=== PATIENT | male | born 1955 | race Caucasian/White ===

== ENCOUNTER 2023-03-14 05:45 | Observation (INO) ==
--- NOTE | 2023-03-04 12:52 | Anesthesiology Consultation ---
Date of Service March 04, 2023 Assessment & Plan (1) Encounter for pre-operative examination: - Infectious disease screening: Per assessment on 03/04/23: No known infectious disease contacts or current infectious disease symptoms. No noted Covid positive test result in past 90 days. - Cardiology visit (10/31/22 [facility]): "Aortic regurgitation.. This is moderate. The echo report states that the left ventricular size is normal but the measurement of 6.4 cm would suggest that it is in fact mildly dilated. This is not unexpected given moderate aortic insufficiency combined with mild mitral regurgitation. Patient does not have any evidence of fluid overload and his EF is low normal based on the report. Unfortunately I do not have the images to review myself. He had been on Lasix but this has been discontinued. In the absence of edema I would not resume Lasix. I recommend that we repeat echocardiogram in 1 year. He has no issues with blood pressure and therefore antihypertensives are not currently indicated.. Venous reflux.. Lower extremities are consistent with chronic venous insufficiency. Fortunately not having significant edema at this time. He will be followed by vascular surgery. I do agree use of compression stockings may be beneficial." > 6 month f/u recommended. - Leg rash: Patient has appt with dermatology today- Awaiting dermatology office visit note ([facility] dermatology, appt 03/04). Patient otherwise acceptable risk for surgery. Chart Review Chart Review: Acceptable Risk for Surgery and Patient NOT seen in Pre Admission Testing History Surgery Operation Date: 03/14/23 07:30 Proposed Procedures p Laparoscopic Robotic Assisted Radical Retropubic Prostatectomy, Possible Open, Possible Pelvic Lymph Node Dissection - David Rojas MD Height/Weight Height: 6 ft Weight: 106.594 kg Allergies Allergy/AdvReac Type Severity Reaction Status Date / Time No Known Drug Allergies Allergy Verified 03/04/23 11:42 Medications Home Medications Medication Instructions Recorded Confirmed Last Taken multivitamin 1 tab PO DAILY #90 tabs 11/17/18 03/04/23 Unknown ferrous sulfate 325 mg (65 mg 325 mg PO Q OTHER DAY 10/31/22 03/04/23 Unknown iron) tablet fluconazole 100 mg tablet 100 mg PO DAILY #5 tabs 11/23/22 03/04/23 Unknown (Diflucan) nystatin-triamcinolone 100,000 1 applic topical BID #30 grams 11/23/22 03/04/23 Unknown unit/g-0.1 % topical cream furosemide 20 mg tablet 20 mg PO QAM 12/04/22 03/04/23 Unknown Past Medical History Medical History Bilateral leg edema Hx, none at present per patient Prostate cancer Aortic regurgitation Echo 07/2022: Moderate AR Follows with [facility] cardiology Pt unaware Skin rash Leg, seeing [facility] derm 03/04/23 Past Family History Family History Father Diabetes Mother Cancer Brother No problems noted. Son No problems noted. Denies family history of Ovarian cancer Prostate cancer Myocardial infarction Breast cancer Colorectal cancer Past Surgical History Surgical History Hx of vasectomy History of colonoscopy History of tooth extraction S/P appendectomy History of prostate biopsy History of arthroscopy of left knee H/O inguinal hernia repair Social History Smoking Status: Never smoker Do You Dip or Chew Tobacco: No Hx Alcohol Use: No Hx Substance Use: No substance use type: does not use Testing Laboratory Results 02/20/23 WBC 9.43 H/H 14.2/43.7 PLATELETS 233 SODIUM 141 POTASSIUM 4.2 CHLORIDE 104 CO2 28 BUN 21 CREATININE 1.0 GLUCOSE 84 URINE CULTURE no growth Electrocardiogram Date: 02/20/23 SR with PACs at 67bpm. High QRS voltage may be normal variant or due to LVE. Chest X-Ray Date: 02/20/23 Findings: + NAD Echocardiogram Date: 08/09/22 Indication: Localized edema LVEF 50% (low normal). Small sized lateral wall motion abnormality with HK of the segments. Mild KRISTIN. Mild MR. Moderate AR. Moderately enlarged aortic root. Proximal ascending aorta mildly enlarged. Grade I DD. Other Testing PET Skull-mid thigh Date: 12/27/22 IMPRESSION: 1. Redemonstration of the 3 cm lesion within the left side of the prostate gland demonstrating moderate radiotracer uptake consistent with the patient's known malignancy. 2. Mild FDG uptake associated with a few small left external iliac and bilateral inguinal lymph nodes. These are indeterminate and would be an atypical location for metastatic disease. However, attention at follow-up recommended to exclude metastatic disease.
[2023-03-14] MEDS ORDERED: ceFAZolin 2000MG 2,000 MG/15 ML SYR IV SCH (06:00)
[2023-03-14] MEDS ORDERED: HEPARIN SOD 5,000 UNIT/0.5 ML VIAL SQ SCH (06:00)
[2023-03-14] MEDS ORDERED: LR 15ML/HR IV SCH (06:00)
[2023-03-14] MEDS ORDERED: LACTATED RINGER'S 1,000 ML IV SCH (06:00)
[2023-03-14] MEDS ORDERED: LIDOCAINE 2% 2 ML VIAL/AMP(20MG/ML) INFIL ONE (06:47)
[2023-03-14] MEDS ORDERED: PROPOFOL IV EMULSION 10 MG/ML 20 ML VIAL IV ONE (06:47)
[2023-03-14] MEDS ORDERED: DEXAMETHASONE SOD INJ 4 MG/ML VIAL ONE (06:47)
[2023-03-14] MEDS ORDERED: ROCURONIUM BROMIDE 10 MG/ML 5 ML VIAL IV ONE ×3 (06:47→11:27)
[2023-03-14] MEDS ORDERED: ONDANSETRON INJ 2 MG/ML 2 ML VIAL ONE (06:47)
[2023-03-14] MEDS ORDERED: MIDAZOLAM HCL 1 MG/ML 2ML VIAL ONE (06:48)
[2023-03-14] MEDS ORDERED: fentaNYL citrate PF 100 MCG/2 ML VIAL ONE ×3 (06:48→11:57)
[2023-03-14] MEDS ORDERED: SUGAMMADEX SODIUM 200 MG/2 ML VIAL IV ONE (06:50)
[2023-03-14] MEDS ORDERED: KETAMINE HCL 10MG/ML SYR ONE (07:02)
[2023-03-14] MEDS ORDERED: BUPIVACAINE 0.5 % 5 MG/1 ML MPF 30ML VIAL ONE (07:14)
--- NOTE | 2023-03-14 07:15 | History & Physical Report ---
Date of Service March 14, 2023 Assessment & Plan (1) Prostate cancer: Plan: We reviewed the plan for robot-assisted radical prostatectomy and pelvic lymph node dissection. We reviewed risks of bleeding, infection, injury to nearby structures, changes in urinary continence, need for additional procedures, changes in erectile function. He expressed understanding and willingness to proceed with surgery. History of Present Illness Primary Care Provider: Shane Zhu DO This is a 67-year-old male followed by urology for prostate cancer. He presents to the OR today for robot-assisted radical prostatectomy. He denies any changes in his health. Allergies Allergy/AdvReac Type Severity Reaction Status Date / Time No Known Drug Allergies Allergy Verified 03/14/23 06:04 Home Medications Medication Instructions Recorded Confirmed Type multivitamin 1 tab PO DAILY #90 tabs 11/17/18 03/14/23 Rx ferrous sulfate 325 mg (65 mg 325 mg PO Q OTHER DAY 10/31/22 03/14/23 History iron) tablet fluconazole 100 mg tablet 100 mg PO DAILY #5 tabs 11/23/22 03/14/23 Rx (Diflucan) nystatin-triamcinolone 100,000 1 applic topical BID #30 grams 11/23/22 03/14/23 Rx unit/g-0.1 % topical cream furosemide 20 mg tablet 20 mg PO QAM 12/04/22 03/14/23 History Past Med/Surg History Medical History Bilateral leg edema Hx, none at present per patient Prostate cancer Aortic regurgitation Echo 07/2022: Moderate AR [facility] Pt unaware Skin rash Leg, seeing [facility] derm 03/04/23 Surgical History Hx of vasectomy History of colonoscopy History of tooth extraction S/P appendectomy History of prostate biopsy History of arthroscopy of left knee H/O inguinal hernia repair Family History Father Diabetes Mother Cancer Brother No problems noted. Son No problems noted. 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 Physical Exam Constitutional: well developed and well nourished; no acute distress Eyes: + anicteric sclerae; pupils not irregula r Respiratory: normal respiratory effort; no respiratory distress, does not use accessory muscles and no cough Cardiovascular: well perfused Gastrointestinal (Abdomen): Inspection/Auscultation: abdomen normal to inspection; abdomen not distended Musculoskeletal: Extremities: extremities normal to inspection Skin: normal turgor; no rashes and no lesions Neurologic: moves all extremities and awake Psychiatric: Orientation: alert and oriented x 3 Results & Data Vital Signs (Past 12 Hours) Vital Signs Temp Pulse Resp BP Pulse Ox O2 Del Method 03/14/23 06:07 36.6 C 68 18 164/84 H 95 Room Air
[2023-03-14] MEDS ORDERED: ONDANSETRON INJ 2 MG/ML 2 ML VIAL IV PRN ×2 (10:11→13:49)
[2023-03-14] MEDS ORDERED: FLUMAZENIL 0.1 MG/1 ML 10 ML VIAL IV PRN (10:11)
[2023-03-14] MEDS ORDERED: ATROPINE SULFATE 0.1 MG/ML 10ML SYR IV PRN (10:11)
[2023-03-14] MEDS ORDERED: ePHEDrine sulfate 50 MG/ML AMP IV PRN (10:11)
[2023-03-14] MEDS ORDERED: HYDROmorphone INJ 1 MG/ML SYRINGE IV PRN (10:11)
[2023-03-14] MEDS ORDERED: PROMETHAZINE HCL 12.5 MG in SODIUM CHLORIDE 0.9% 50 ML IV PRN (10:11)
[2023-03-14] MEDS ORDERED: NALOXONE HCL 0.4 MG/1 ML VIAL/CARP IV PRN (10:11)
[2023-03-14] MEDS ORDERED: LABETALOL HCL IV 5 MG/ML 20ML IV PRN (10:11)
[2023-03-14] MEDS ORDERED: PHENYLEPHRINE 100MCG/ML 10ML SYR IV ONE (11:03)
[2023-03-14] MEDS ORDERED: ePHEDrine sulfate 50 MG/5 ML SYR ONE (11:03)
--- NOTE | 2023-03-14 12:27 | Operative Report ---
[facility] Post Operative Report Pre & Post Diagnosis Operation Date: 03/14/23 07:30 Pre-Op Diagnosis: Prostate Cancer Post-Op Diagnosis: Prostate Cancer I identified the patient and participated in the time-out.: Yes Procedure Operation Date: 03/14/23 07:30 Actual Procedures p Robotic Assisted Laparoscopic Radical Retropubic Prostatectomy, Pelvic Lymph Node Dissection(Not Applicable) - David Rojas MD Surgeon David Rojas MD Special Education Resource Room Teacher TREY Lima Estimated Blood Loss 200 Findings Consistent with Post-Op Diagnosis Specimens 1) periprostatic fat 2) right pelvic lymph nodes 3) left pelvic lymph nodes 4) prostate, vas deferens, seminal vesicles Drains Bansal catheter per urethra, 10 cc in balloon Anesthesia Type General Complications none Disposition Accompanied Patient To Recovery: Yes Disposition: Recovery Room Indications This is a 67-year-old male followed by urology for prostate cancer. He is being brought to the operating room for robot-assisted radical prostatectomy and pelvic lymph node dissection. Description of Procedure The patient was identified in the preoperative holding area and informed consent was confirmed. He was then brought to the operating room where general anesthesia was initiated. He was placed supine on the operating room table with all pressure points appropriately padded. His abdomen and genitalia were prepped and draped in the usual sterile fashion and a timeout was performed. Bansal catheter was placed per urethra. A 2 cm incision was made above the umbilicus and then a Veress needle was used to obtain access to the abdomen. Proper position was confirmed with the drop test and low initial insufflation pressure. The abdomen was insufflated with CO2 to a pressure of 12 mmHg. An 8 mm robotic port was placed in the incision and the robotic camera was inserted. The abdominal cavity was surveyed, demonstrating no injury to intra-abdominal contents. He had some adhesions in the left lower quadrant. There appeared to be some fat-containing hernias in the pelvis. The remaining robotic ports were placed under direct visualization, with 2 ro botic ports on the left side and 1 robotic port on the right. A 12 mm medical billing assistant port was placed on the right side as well, and a 5 mm medical billing assistant port was placed in the right upper quadrant. The robot was then docked. Sharp lysis of adhesions were performed in the left lower quadrant to gain some mobility of the sigmoid and rectum. Using electrocautery, the bladder was then dropped from the anterior wall of the abdomen, exposing the space of Retzius. The fat-containing hernias were reduced as much as possible were divided if needed. This dissection was carried down to expose the pelvic brim and subsequently the anterior surface of the prostate and the endopelvic fascia. The fat overlying the anterior of the prostate was removed and sent for pathologic analysis, labeled as 'periprostatic fat'. The endopelvic fascia was then divided on each side to expose the lateral aspects of the prostate and the lateral aspects of the pedicles. There was some mild inflammation in the tissues on the left side which made dissection slightly more challenging. A single 3-0 V-Loc suture was used to ligate the dorsal venous complex to prevent backbleeding in subsequent steps. The fourth arm of the robot was then used to put some gentle traction on the bladder, and the bladder neck was identified. Using electrocautery, the anterior bladder neck was dissected to expose the Bansal catheter, whose tip was removed from the bladder and held anteriorly. There was a somewhat prominent left prostatic lobe extending toward the bladder. The posterior bladder neck dissection was then completed. At this point bilateral vas deferens were exposed and isolated. The vas deferens were cauterized and then divided. Bilateral seminal vesicles were dissected out as well. Denonvilliers fascia was then divided and the posterior prostate dissection was carried up as far as possible toward the urethra. The pedicles were then divided using combination of clips and sharp dissection, trying to use minimal electrocautery. On the right side, a nerve sparing approach was used. On the left side, a partial nerve sparing approach was used. Attention was turned anteriorly and the dorsal venous complex was divided using sharp dissection and electrocautery. There was some bleeding from the dorsal venous complex so the 3 oh V-Loc suture was used to ligate these areas. The urethra was isolated and then divided sharply. At this point, the prostate was free and was placed in a specimen bag. Bilateral pelvic lymph node dissection was then performed, and the padma tissue was sent for pathologic analysis. The pelvis was inspected and meticulous hemostasis was ensured. Double-armed V- Loc suture was then used to re-anastomose the bladder neck with the urethra. Once this was complete, the anastomosis was tested by instilling 120 mL of normal saline into the bladder. Initially there was some leaking from the left side of the bladder neck although additional sutures were placed with a running V-Loc which eventually resulted in a watertight anastomosis. Satisfied that the anastomosis was watertight, the catheter balloon was inflated with 10 mL of normal saline. Surgicel was then applied to the lateral aspects of the pelvis for hemostasis. The robot was then undocked. The supraumbilical incision was extended and the prostate was extracted. 0 Vicryl suture was then used to close the fascia at this incision. All skin incisions were closed with 4-0 Monocryl suture and then a layer of Dermabond was applied. The patient was then awakened from anesthesia and was brought to the PACU in stable condition. TREY Lima acted as the bedside medical billing assistant for the duration of the case. She assisted with gaining access, providing retraction and suction. Passing in sutures and applying clips as needed. She also helped with specimen extraction and closing. I attest to the content of the Intraoperative Record and any orders documented therein. Any exceptions are noted below.
[2023-03-14] MEDS: fentaNYL citrate PF 100 MCG/2 ML VIAL IV PRN ×2 (12:33→12:38)
--- NOTE | 2023-03-14 13:32 | Anesthesiology Progress Note ---
Date of Service March 14, 2023 Anesthesia Post Procedure Vital Signs Vital Signs: Temp Pulse Pulse Resp BP Pulse Ox O2 Del Method 03/14/23 13:05 79 15 126/69 92 Oxymask 03/14/23 12:55 80 16 123/71 91 Oxymask 03/14/23 12:45 86 15 126/81 90 Oxymask 03/14/23 12:35 104 H 19 135/82 91 Oxymask 03/14/23 12:25 76 17 117/67 94 Oxymask 03/14/23 12:17 36.3 C L 76 15 112/66 94 Oxymask 03/14/23 06:07 36.6 C 68 18 164/84 H 95 Room Air O2 Flow Rate 03/14/23 13:05 6 03/14/23 12:55 10 03/14/23 12:45 10 03/14/23 12:35 10 03/14/23 12:25 10 03/14/23 12:17 10 03/14/23 06:07 Transfer of Care Handoff Completed per policy Notes Mental Status: alert / awake / arousable Patient Amnestic to Procedure: Yes Nausea / Vomiting: adequately controlled Pain: adequately controlled Airway Patency, RR, SpO2: stable & adequate BP & HR: stable & adequate Hydration State: stable & adequate Anesthetic Complications: no major complications apparent
[2023-03-14] MEDS ORDERED: IBUPROFEN 200 MG TAB PO PRN (13:49)
[2023-03-14] MEDS ORDERED: oxyCODONE HCL IR 5 MG TAB (IMMEDIATE RELEASE) PO PRN ×2 (13:49)
[2023-03-14] MEDS ORDERED: MoRPHine SULFATE 2 MG/ML CARP IV PRN (13:49)
[2023-03-14] MEDS ORDERED: MoRPHine SULFATE 4 MG/ML 1 ML CARP\\VIAL IV PRN (13:49)
[2023-03-14] MEDS: LACTATED RINGER'S 1,000 ML IV SCH (15:24)
[2023-03-14] MEDS: ceFAZolin 2000MG 2,000 MG/15 ML SYR IV SCH ×2 (17:14→23:03)
[2023-03-14] MEDS: ACETAMINOPHEN 325 MG TAB PO SCH (18:32)
[2023-03-14] MEDS: HEPARIN SOD 5,000 UNIT/0.5 ML VIAL SQ SCH (21:28)
[2023-03-14] MEDS: DOCUSATE SODIUM 100 MG CAP PO SCH (21:28)
--- OUTSIDE RECORDS SUMMARY | 2023-03-15 00:37 | External Medical Summary | Summary of Care ---
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 Dr doughertys up in the winter some. Comes and goes * Evaluate & Treat - Unlimited Visits (Within 10 days (routine)) - Pending Review Specialty Diagnoses / Procedures Referred By Dinh cain Referred To Contact Dermatology Diagnoses Rash and other nonspecific skin eruption Shane Zhu DO [address] [place] [address] Referral ID Status Reason Start Date Expiration Date Visits Requested Visits Authorized [id number] Pending Review Specialty Services Required 11/26/[phone] Encounter Details Date Type Department Care Team (Late st Contact Info) Description 03/04/2023 3:10 PM EST Office Visit Dermatology, Julianna Maldonado [address] [place] [address] [place] [address] Moon Aguayo PA-C [address] [place] [address] [place] [address] Rash and nonspecific skin eruption* Allergies Active Allergy Reactions Criticality Noted Date Comments Qhkwklmfv-Roszzlar-Xd 01/24/2009 Dymatapp- burning palms documented as of this encounter (statuses as of 03/08/2023) Medications Medication Sig Dispensed Refills Start Date End Date Status MULTIVITAMINS PO CAPS one cap daily 0 0 01/24/2009 Active TRIAMCINOLONE ACETONIDE 0.1 % EX CREAIndications:De rmatitis Apply to affected area twice a day 80 g 5 02/05/2013 Active Acetaminophen 325 MG Oral Tablet (Tylenol) Take 3 Tablets by mouth every 6 hours. 30 Tablet 0 10/03/2022 Active Betamethasone Dipropionate Aug 0.05 % External Cream (Diprolene AF)Indications:Preston h and nonspecific skin eruption Apply twice daily to extremities up to 2 weeks, then taper to weekends only Fri-Sun as needed 50 g 2 03/04/2023 Active METAMUCIL 0.52 GM PO CAPS 2 in AM 60 Cap 0 12/26/2009 3 Discontinue d(Medicatio n List Clean Up) VIAGRA 50 MG PO TABSIndications:Im potence of organic origin One pill by mouth 1-4 hours before intercourse, no more than 1 dose in 24 hours. 10 Tab 5 11/13/2010 3 Discontinue d(Medicatio n List Clean Up) furosemide (LASIX) 20 MG Tablet Take 20 mg by mouth daily. 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 Overview: Viagra prn Dermatitis 01/27/2010 Benign neoplasm of colon 03/09/2009 Overview: Colonoscopy 2008: adenomatous/acute rectal cryptitis/repeat colonoscopy 2011 documented as of this encounter (statuses as of 03/08/2023) Immunizations Name Administration Dates Next Due TDAP (age 11 and older)(Adacel) 06/22/2011 documented as of this encounter Social History Tobacco Use Types Packs/Day Years Used Date Smoking Tobacco: Never Smokeless Tobacco: Never Alcohol Use Standard Drinks/Week Comments No 0 (1 standard drink = 0.6 oz pur e alcohol) PHQ-2 Answer Date Recorded PHQ-2 Score 0 02/19/2018 Sex and Gender Information Value Date Recorded Sex Assigned at Not on file Gender Identity Not on file Sexual Orientation Not on file Job Start Date Occupation Industry Not on file Not on file Not on file documented as of this encounter Functional Status Functional Status Response Date of Assess ment Are you deaf or do you have serious difficulty h earing? No 10/02/2022 Are you blind or do you have serious difficulty seeing, even when wearing glasses? No 10/02/2022 Do you have serious difficul ty walking or climbing stairs? (5 years old or older) No 10/02/2022 Do you have difficulty dress ing or bathing? (5 years old or older) No 10/02/2022 Because of a physical, menta l, or emotional condition, do you have difficulty doing errands alone such as visiting a doctor s office or shopping? (15 years old or older) No 10/03/19 Cognitive Status Response Date of Assessm ent Because of a physical, menta l, or emotional condition, do you have serious difficulty concentrating, remembering, or making decisions? 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 Dries up in the winter some. Comes and goes HPI: Josue Page is a 67 year old male seen at the request of Shane Zhu DO for evaluation and treatment of rash. Rash onset a few years ago. Worse in summer months and seems to "dry out in winter". PCP has prescribed triamcinolone cream which helps decrease inflammation, but rash never resolves. No other areas of involvement. He denies eczema or allergy. No known exposures or contact to area(s). He denies eczema. DERMATOLOGIC HISTORY: Reviewed previous office notes and relevant surgical pathology: H/o skin disorders: no H/o skin cancer: no REVIEW OF SYSTEMS: See HPI- all other findings negative Constitutional: (-) fever, chills, sweats, weight loss Skin: (-) no rash or new or changing moles or skin lesions Past Medical History: Diagnosis Date Benign neoplasm of colon 03/09/09 adenomatous/acute rectal cryptitis/repeat colonoscopy in 3-5 yrs Patient Active Problem List Diagnosis Code Benign neoplasm of colon D12.6 Dermatitis L30.9 Impotence of organic origin N52.9 Elevated prostate specific antigen (PSA) R97.20 SOCIAL HISTORY: Social History Tobacco Use Smoking status: Never Smokeless tobacco: Never Substance Use Topics Alcohol use: No Vaping/E-Cigarette Use Vaping/E-Cigarette Substances Vaping/E-Cigarette Devices MEDICATIONS: Current Outpatient Medications Medication Sig Dispense Refill MULTIVITAMINS PO CAPS one cap daily 0 0 METAMUCIL 0.52 GM PO CAPS 2 in AM (Patient not taking: Reported on 10/01/2022) 60 Cap 0 TRIAMCINOLONE ACETONIDE 0.1 % EX CREA Apply to affected area twice a day 80 g 5 furosemide (LASIX) 20 MG Tablet Take 20 mg by mouth daily. (Patient not taking: Reported on 10/01/2022) Acetaminophen 325 MG Oral Tablet (Tylenol) Take 3 Tablets by mouth every 6 hours. 30 Tablet 0 No current facility-administered medications for this visit. ALLERGIES: Cold & cough [surpoqsrz-jepxmoqz-gz] OBJECTIVE: GEN: Healthy, alert, no distress, appears oriented, pleasant, and cooperative. PSYCH: Appropriate mood and affect, alert SKIN: Detailed exam to lower extremities was completed and are within normal limits with the following exceptions: 1. Bilateral upper thighs with scattered pink scaly papules and plaques. ASSESSMENT/PLAN: Rash-nummular dermatitis vs contact dermatitis-allergic/irritant, low suspicion for tinea with negative TRISTIAN. - DERM IMAGE (SITE) - POTASSIUM HYDROXIDE SMEAR, POINT OF CARE (ENTER/EDIT) - Betamethasone Dipropionate Aug 0.05 % External Cream (Diprolene AF); Apply twice daily to extremities up to 2 weeks, then taper to weekends only Fri-Sun as needed -TRISTIAN negative. -Presumed diagnoses, expected natural histories, and management options discussed with the patient at length. Questions were addressed and anticipatory guidance provided. They were instructed to contact me if additional questions, concerns, or problems develop in the interim. - The patient was recommended to use a moisturizing cream at least twice daily such as Cetaphil, CeraVe, Aveeno, Eucerin, Neutrogena, or Aquaphor - When showering/bathing, the pt was advised to use luke-warm water and mild soaps followed by gently patting dry and applying moisturizers immediately after - Counseled on identifying and avoiding triggers when possible - May start using Free and Clear Detergent for laundry and avoid scented dryer sheets - Cortisones, which reduce inflammation, are vitally important. Low potency cortisones can be used safely for long periods of time, and stronger ones for troubled areas as needed. - Trial of betamethasone 0.05% cream twice daily for 2 weeks, then taper to weekends only as needed. - Instructed to return to clinic for re-evaluation if no improvement with above regime. Patient alone today. Follow-up: per plan above, otherwise as needed. Photos taken, patient consented to photos. Applicable photos (if any) and chart reviewed by Dr. Marco Ordoñez. The patient was encouraged to contact me with any further questions or concerns. Moon Aguayo PA-C 03/04/2023 * Marco Ordoñez MD - 03/04/2023 3:10 PM EST I have seen and examined the patient via teledermatology review of chart note and photos with Moon Aguayo PA-C. I have reviewed and agree with the assessment and plan. 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 Dries up in the winter some. Comes and goes documented in this encounter Plan of Treatment Scheduled Procedures Name Priority Associated Diagnoses Date/Ti me COLONOSCOPY FLEXIBLE PROXIMA L DIAGNOSTIC Recall History of colonic polyps Health Maintenance Due Date Last Done Comments COVID-19 Vaccine (#1) 02/26/1956 Zoster Vaccines (1 of 2) 2006 Depression Screening 01/07/2019 01/07/2018 DTaP,Tdap,and Td Vaccines (2 - Td or Tdap) 06/21/2021 06/22/2011 Pneumococcal Vaccine: 65+ Years (1 - PCV) 2021 Influenza Vaccine (FLU shot) (#1) 2022 Lipid Panel 01/07/2023 01/07/2018, 12/14, 12/26/2015, Additional history exists COLONOSCOPY-EVERY 5 YRS AGES 18-100 04/10/2024 04/10/2019, 04/10/2019, 02/15/2014, Additional history exists Diabetes Screening 02/20/2026 02/20/2023, 0 10/02/2022, 10/01/2022, Additional history exists GARDASIL-HPV IMMUNIZATION SERIES Aged Out No longer eligible based on patient's age to complete this topic Hepatitis B Aged Out No longer eligi ble based on patient's age to complete this topic MENINGOCOCCAL (MENACTRA/MENVEO) Aged Out No longer eligible based on patient's age to complete this topic documented as of this encounter Medical Devices Not on filedocumented as of this encounter Procedures Procedure Name Priority Date/Time Associated Diagnosis Comments POTASSIUM HYDROXIDE SMEAR, POINT OF CARE (ENTER/EDIT) Routine 03/04/2023 Rash and nonspecific skin eruption DERM IMAGE (SITE) Routine 03/04/2023 Rash and nonspecific skin eruption documented in this encounter Results * DERM IMAGE (SITE) (03/04/2023) 03/04/2023 Moon Aguayo PA-C DIGITAL PHOTOGR APHY * POTASSIUM HYDROXIDE SMEAR, POINT OF CARE (ENTER/EDIT) (03/04/2023) Yeast and/or Hyphae Negative Negative Scabies Mites and/or Eggs Negative Negative Comments 03/04/2023 Moon Aguayo PA-C LAB POINT OF CA RE TEST ENTER/EDIT ORDERABLES documented in this encounter Visit Diagnoses Diagnosis Rash and nonspecific skin eruption- Primary Rash and other nonspecific skin eruption documented in this encounter Advance Directives Latest Code Status on File Code Status Date Activated Date Inactivated Comments Full Code 10/02/2022 1:43 AM 10/03/2022 4:10 PM This order reflects the patients wishes and were consensually agreed upon. Question Answer Comments Discussion of Advance Directives occurred with: Not Discussed due to patient's condition Does the patient have a Living Will? No Does the patient have Health Care Power of Behavioral Sciences Instructor? No Care Teams Table Attendant Relationship Specialty Start Date End Date Shane Zhu DO [address] [place] [address] PCP - General Family Medicine 07/31/22 documented as of this encounter
--- OUTSIDE RECORDS SUMMARY | 2023-03-15 00:38 | External Medical Summary | Summary of Care ---
Author Name Unknown Organization [facility] [address] [place] [address] Phone [phone] Care Team Providers Care Paper Slitter Name Role Phone MarkoShane DO Primary Care Provider [phone] Encounter Details Date Type Department Care Team (Late st Contact Info) Description 02/20/2023 Orders Only Cardiac Studies, [facility] [address] [place] [address] Requisition, External Cardiology [address] [place], [place] [id number] Preoperative cardiovascular examination* Allergies Active Allergy Reactions Criticality Noted Date Comments Kpjtwurrx-Jotvlgkv-Mq 01/24/2009 Dymatapp- burning palms documented as of this encounter (statuses as of 02/20/2023) Medications Medication Sig Dispensed Refills Start Date End Date Status MULTIVITAMINS PO CAPS one cap daily 0 0 01/24/2009 Active METAMUCIL 0.52 GM PO CAPS 2 in AM 60 Cap 0 12/26/2009 Active VIAGRA 50 MG PO TABSIndications:Imp otence of organic origin One pill by mouth 1-4 hours before intercourse, no more than 1 dose in 24 hours. 10 Tab 5 11/13/2010 Active Additional Information Patient not taking.Reported on 10/02/2022 TRIAMCINOLONE ACETONIDE 0.1 % EX CREAIndications:Cody matitis Apply to affected area twice a day 80 g 5 02/05/2013 Active furosemide (LASIX) 20 MG Tablet Take 20 mg by mouth daily. 0 Active Acetaminophen 325 MG Oral Tablet (Tylenol) Take 3 Tablets by mouth every 6 hours. 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 (5 years old or older No 10/02/2022 documented as of this encounter Plan of Treatment Upcoming Encounters Date Type Department Care Team (Late st Contact Info) Description 02/20/2023 3:30 PM EST Laboratory Laboratory, [facility] [address] [place] [phone] [facility] [address] [facility] [address] Arrived 03/04/2023 3:10 PM EST Office Visit Dermatology, Julianna Maldonado [address] [place] [address] [address] Moon Aguayo PA-C [address] [place] [address] [place] [address] Scheduled Orders Name Type Priority Associated Diagnoses Orde r Schedule EKG EKG Routine Preoperative cardiovascular examination Expected: 02/20/2023 (Approximate), Expires: 03/22/2024 Scheduled Procedures Name Priority Associated Diagnoses Date/Ti [...] 04/10/2019, 02/15/2014, Additional history exists Diabetes Screening 10/02/2025 10/02/2022, 0 10/01/2022, 01/07/2018, Additional history exists GARDASIL-HPV IMMUNIZATION SERIES Aged [...] Not on filedocumented as of this encounter Visit Diagnoses Diagnosis Preoperative cardiovascular examination- Primary Pre-operative cardiovascular examination documented in this encounter Advance Directives Latest [...] the patient have Health Care Power of Refueling Rampman? No Care Teams Paper Slitter Relationship Specialty Start Date End Date Shane Zhu DO [address] [place] [address] PCP - General Family Medicine 07/31/22 documented as of this encounter
--- OUTSIDE RECORDS SUMMARY | 2023-03-15 00:38 | External Medical Summary ---
Author Name Unknown Address Unknown Organization K01:[facility] [place] - [address] [place] [id number] Laboratory Report Ordering Provider Test Date Status JCRUSSELL 02/20/2023 15:21:32 Final Observation Date Value Abnormality Reference (Units) Status Bacteria identified in Specimen by Culture 02/20/2023 15:21:32 No significant growth Final Test: Culture, Urine, Quant itative
Specimen Source: Urine, Clean Catch
Specimen Type: Urine
Specimen Date: 02/20/2023 3:21 PM
Result Date: 02/21/2023 1:22 PM
Result Status: Final result
Resulting Lab: [facility] [place]
[address]
[facility] [address]

CULTURE

No significant growth

null Performing Location [facility] [place] - [address] [facility] [address]
--- OUTSIDE RECORDS SUMMARY | 2023-03-15 00:38 | External Medical Summary | Summary of Care ---
Author Name Unknown Organization [facility] Address [address] [place] [address] Phone [phone] Care Team Providers Care Clinical Engineer Name Role Phone Marko Ezequiel Primary Care Provider [phone] Reason for Visit * Reason Comments Outpatient Testing Encounter Details Date Type Department Care Team (Late st Contact Info) Description 02/20/2023 3:30 PM EST Laboratory Laboratory, [facility] [address] [place] [phone] [facility], Lab [address] [place], [place] [phone] Malignant neoplasm of prostate (HCC) Allergies Active Allergy Reactions Criticality Noted Date Comments Oxmbosbql-Fovqfojy-Le 01/24/2009 Dymatapp- burning palms documented as of [...] No 10/02/2022 documented as of this encounter Miscellaneous Notes * Addendum Note - Celina Casas TECH - 02/20/2023 3:59 PM ESTAddended by: CELINA CASAS on: 02/20/2023 03:59 PM Modules accepted: Orders documented in this encounter Plan of Treatment Upcoming Encounters Date Type Department Care Team (Late st Contact Info) Description 03/04/2023 3:10 PM EST Office Visit Dermatology, Julianna Maldonado [address] [place] [address] [address] Moon Aguayo PA-C [address] [place] [address] [place] [address] Pending Results Name Type Priority Associated Diagnoses Date /Time CBC WITH WBC DIFFERENTIAL Lab Routine Malignant neoplasm of prostate (HCC) 02/20/2023 3:21 PM EST CULTURE, URINE, QUANTITATIVE Lab Routine Malignant neoplasm of prostate (HCC) 02/20/2023 3:21 PM EST BASIC METABOLIC PANEL Lab Routine Malignant neoplasm of prostate (HCC) 02/20/2023 3:21 PM EST CBC Lab Routine Malignant neoplasm of prostate (HCC) 02/20/2023 3:21 PM EST DIFFERENTIAL, AUTOMATED Lab Routine Malignant neoplasm of prostate (HCC) 02/20/2023 3:21 PM EST EXTRA TUBES Lab Routine 02/20/2023 3: 21 PM EST EXTRA URINE Lab Routine 02/20/2023 3: 21 PM EST Scheduled Procedures Name Priority Associated Diagnoses Date/Ti [...] as of this encounter Visit Diagnoses Diagnosis Malignant neoplasm of prostate (HCC) Malignant neoplasm of prostate documented in this encounter Advance Directives Latest [...] the patient have Health Care Power of Roll Press Operator? No Care Teams Clinical Engineer Relationship Specialty Start Date End Date Shane Zhu DO [address] [place] [address] PCP - General Family Medicine 07/31/22 documented as of this encounter
--- OUTSIDE RECORDS SUMMARY | 2023-03-15 00:38 | External Medical Summary | Summary of Care ---
Author Name Unknown Organization [facility] Address [address] [place] [address] Phone [phone] Care Team Providers Care Furniture Packer Name Role Phone Marko Shane Marks DO Primary Care Provider [phone] Encounter Details Date Type Department Care Team (Latest Contact Info) Description 02/20/2023 3:29 PM EST - 02/20/2023 11:[address] 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 Overview: Viagra prn Dermatitis 01/27/2010 Benign neoplasm of colon 03/09/2009 Overview: Colonoscopy 2008: adenomatous/acute rectal cryptitis/repeat colonoscopy 2011 documented as of this encounter (statuses as of 02/21/2023) Immunizations Name Administration Dates Next Due TDAP [...] Office Visit Dermatology, Julianna Maldonado [address] [place] [address] [place] [address] Moon Aguayo PA-C [address] [place] [address] [place] [address] Pending Results Name Type Priority Associated Diagnoses Date /Time XR CHEST 2 VIEWS Medical Imaging Routine Malignant neoplasm of prostate (HCC) 02/20/2023 3:37 PM EST Scheduled Procedures Name Priority Associated [...] Not on filedocumented as of this encounter Advance Directives Latest Code Status [...] the patient have Health Care Power of Regulatory Affairs Assistant? No Care Teams Furniture Packer Relationship Specialty Start Date End Date Shane Zhu DO [address] [place] [address] PCP - General Family Medicine 07/31/22 documented as of this encounter
--- OUTSIDE RECORDS SUMMARY | 2023-03-15 00:38 | External Medical Summary | Summary of Care ---
Author Name Unknown Organization [facility] Address [address] [place] [address] Phone [phone] Care Team Providers Care Direct Sales Consultant Name Role Phone Marko, Shane Marks DO Primary Care Provider [phone] Encounter Details Date Type Department Care Team (Latest Contact Info) Description 02/20/2023 3:03 PM EST - 02/20/2023 3:28 PM EST Hospital Encounter Cardiac Studies, [facility] [address] [place] [address] Glh, Archery Equipment Repairer [address] [place] [address] Discharge Disposition: Home - Self Care Allergies Active Allergy Reactions Criticality Noted Date Comments Nkfzlqizk-Bdsgweiu-Cl 01/24/2009 Dymatapp- burning palms documented as of [...] 03/04/2023 3:10 PM EST Office Visit Dermatology, Torrie Zaragoza [address] [place] [address] [place] [address] Moon Aguayo PA-C [address] [place] [address] [place] [address] Scheduled Procedures Name Priority Associated Diagnoses Date/Ti [...] this encounter Visit Diagnoses Diagnosis Preoperative cardiovascular examination Pre-operative cardiovascular examination documented in this encounter [...] the patient have Health Care Power of Sterile Processing Technician? No Care Teams Direct Sales Consultant Relationship Specialty Start Date End Date Shane Zhu DO [address] [place] [address] PCP - General Family Medicine 07/31/22 documented as of this encounter
--- OUTSIDE RECORDS SUMMARY | 2023-03-15 00:38 | External Medical Summary ---
Author Name Unknown Address Unknown Organization K01:[facility] - [address] [facility] [address] Laboratory Report Ordering Provider Test Date Status JCRUSSELL 02/20/2023 15:21:32 Final Observation Date Value Abnormality Reference (Units ) Status SYNC LEUKOCYTES IN BLOOD BY AUTOMATED COUNT 02/20/2023 15:21:32 9.43 4.00-10.80 (K/uL) Final Segs 02/20/2023 15:21:32 55.2 40.0-75.0 (%) Final Lymphs % 02/20/2023 15:21:32 32.0 18.0-42.0 (%) Final Monos 02/20/2023 15:21:32 10.2 1.0-11.0 (%) Final Eosinophils 02/20/2023 15:21:32 1.6 0.0-6.0 (%) Final Basos 02/20/2023 15:21:32 0.7 0.0-2.0 (%) Final Immature Granulocyte, Percent 02/20/2023 15:21:32 0.3 0.0-2.0 (%) Final Absolute Segs 02/20/2023 15:21:32 5.20 1.80-7.70 (K/uL) Final Lymphs, absolute 02/20/2023 15:21:32 3.02 1.00-4.80 (K/ul) Final Monos, Abs 02/20/2023 15:21:32 0.96 0.00-1.10 (K/uL) Final Eos, Abs 02/20/2023 15:21:32 0.15 0.00-0.70 (K/uL) Final Basos, Abs 02/20/2023 15:21:32 0.07 0.00-0.20 (K/uL) Final Immature Granulocytes, Number 02/20/2023 15:21:32 0.03 0.00-0.20 (K/uL) Final Performing Location [facility]AT[facility] - [address] [facility] [address]
--- OUTSIDE RECORDS SUMMARY | 2023-03-15 00:38 | External Medical Summary | Summary of Care ---
Author Name Unknown Organization [facility] Address [address] [place] [address] Phone [phone] Care Team Providers Care Sql Programmer Analyst Name Role Phone Shane Zhu DO Primary Care Provider + [phone] Reason for Visit * Reason Comments NEW PATIENT SHELL COREMAKER- rash on legs. Dr doughertys up in the winter some. Comes and goes * Evaluate & Treat - Unlimited Visits (Within 10 days (routine)) - Pending Review Specialty Diagnoses / Procedures Referred By Dinh cain Referred To Contact Dermatology Diagnoses Rash and other nonspecific skin eruption Shane Zhu DO [address] [place] [address] Referral ID Status Reason Start Date Expiration Date Visits Requested Visits Authorized [id number] Pending Review Specialty Services Required 11/26/[phone] Encounter Details Date Type Department Care Team (Late st Contact Info) Description 03/04/2023 3:10 PM EST Office Visit Dermatology, Julianna Maldonado [address] [place] [address] [place] [address] Moon Aguayo PA-C [address] [place] [address] [place] [address] Rash and nonspecific skin eruption* Allergies Active Allergy Reactions Criticality Noted Date Comments Exbdprmwy-Zqswtybp-Va 01/24/2009 Dymatapp- burning palms documented as of [...] Chief Complaint Patient presents with NEW PATIENT SHELL COREMAKER- rash on legs. Dries up in the [...] for this visit. ALLERGIES: Cold & cough [nussswrxs-fdmhxtec-gw] OBJECTIVE: GEN: Healthy, alert, no distress, appears [...] questions or concerns. Moon Aguayo PA-C 03/04/2023 documented in this encounter Nursing Notes * Ann Marie Hall LPN - 03/04/2023 3:11 PM EST Chief Complaint Patient presents with NEW PATIENT SHELL COREMAKER- rash on legs. Dries up in the [...] the patient have Health Care Power of Support Manager? No Care Teams Sql Programmer Analyst Relationship Specialty Start Date End Date Shane Zhu DO [address] [place] [address] PCP - General Family Medicine 07/31/22 documented as of this encounter
--- OUTSIDE RECORDS SUMMARY | 2023-03-15 00:38 | External Medical Summary | Summary of Care ---
Author Name Unknown Organization [facility] Address [address] [place] [address] Phone [phone] Care Team Providers Care Philosophy Instructor Name Role Phone Marko Ezequiel Primary Care Provider [phone] Reason for Visit * Reason Comments Outpatient Testing Encounter Details Date Type Department Care Team (Late st Contact Info) Description 02/20/2023 3:30 PM EST Laboratory Laboratory, [facility] [address] [place] [phone] [facility], Lab [address] [place], [place] [id number] Malignant neoplasm of prostate (HCC) Allergies Active Allergy Reactions Criticality Noted Date Comments Lwxkdlgps-Fzhvowrg-Jt 01/24/2009 Dymatapp- burning palms documented as of [...] Team (Late st Contact Info) Description 02/20/2023 3:29 PM EST Hospital Encounter Radiology, [facility] [address] [place] [phone] Arrived 03/04/2023 3:10 PM EST Office Visit Dermatology, Julianna Maldonado [address] [place] [address] [place] [address] Moon Aguayo PA-C [address] [place] [address] [place] [address] Pending Results Name Type Priority Associated Diagnoses [...] of prostate (HCC) 02/20/2023 3:21 PM EST Scheduled Procedures Name Priority Associated [...] the patient have Health Care Power of Instrument Tester? No Care Teams Philosophy Instructor Relationship Specialty Start Date End Date Shane Zhu DO [address] [facility] [address] PCP - General Family Medicine 07/31/22 documented as of this encounter
--- OUTSIDE RECORDS SUMMARY | 2023-03-15 00:38 | External Medical Summary | Summary of Care ---
Author Name Unknown Organization [facility] Address [address] [place] [address] Phone [phone] Care Team Providers Care Pump House Operator Name Role Phone Marko Ezequiel Primary Care Provider [phone] Reason for Visit * Reason Comments Outpatient Testing Encounter Details Date Type Department Care Team (Late st Contact Info) Description 02/20/2023 3:30 PM EST Laboratory Laboratory, [facility] [address] [place] [phone] [facility], Lab [address] [place], [place] [phone] Malignant neoplasm of prostate (HCC) Allergies Active Allergy Reactions Criticality Noted Date Comments Oihpqxtfc-Tuvzmara-Vd 01/24/2009 Dymatapp- burning palms documented as of [...] Note - Celina Casas TECH - 02/20/2023 4:06 PM ESTAddended by: CELINA CASAS on: 02/20/2023 04:06 PM Modules accepted: Orders * Addendum Note - Celina Casas TECH - 02/20/2023 3:59 PM ESTAddended by: CELINA CASAS on: 02/20/2023 03:59 PM Modules accepted: Orders documented in this encounter Plan of Treatment Upcoming Encounters Date Type Department Care Team (Late st Contact Info) Description 03/04/2023 3:10 PM EST Office Visit Dermatology, Julianna Maldonado [address] [facility] [address] [address] [address] Moon Aguayo PA-C [address] [facility] [address] [place] [address] Pending Results Name Type Priority Associated Diagnoses [...] Routine 02/20/2023 3: 21 PM EST EXTRA TUBES Lab Routine 02/20/2023 3: 21 PM EST EXTRA URINE MARBLE TOP Lab Routine 3:21 PM EST Scheduled Procedures Name Priority [...] the patient have Health Care Power of Strapper Operator? No Care Teams Pump House Operator Relationship Specialty Start Date End Date Shane Zhu DO [address] [facility] [place] [address] PCP - General Family Medicine 07/31/22 documented as of this encounter
--- OUTSIDE RECORDS SUMMARY | 2023-03-15 00:39 | External Medical Summary | Summary of Care ---
Author Name Unknown Organization [facility] Address [address] [place] [address] Phone [phone] Care Team Providers Care Combining Machine Operator Name Role Phone Shane Zhu DO Primary Care Provider [phone] Reason for Visit * Reason Onset Date Comments Appointment 11/21/2022 Encounter Details Date Type Department Care Team Description 11/21/2022 Telephone Vascular Surg [facility] [address] [place], [place] [phone] Edwin Jennings CRNP [address] [place] [address] Appointment Allergies Active Allergy Reactions Severity Noted Date Comments Itsbenwha-Jqfswasn-Sv 01/24/2009 Dymatapp- burning palms documented as of this encounter (statuses as of 11/22/2022) Medications Medication Sig Dispensed Refills Start Date [...] as of this encounter (statuses as of 11/22/2022) Active Problems Problem Noted Date Elevated prostate specific antigen (PSA) 02/06/2013 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 Overview: Viagra prn Dermatitis 01/27/2010 Benign neoplasm of colon 03/09/2009 Overview: Colonoscopy 2008: adenomatous/acute rectal cryptitis/repeat colonoscopy 2011 documented as of this encounter (statuses as of 11/22/2022) Immunizations Name Administration Dates Next Due TDAP (age 11 and older)(Adacel) 06/22/2011 documented as of this encounter Social History Tobacco Use Types Packs/Day Years Used Date Smoking Tobacco: Never Smokeless Tobacco: Never Alcohol Use Standard Drinks/Week Comments No 0 (1 standard drink = 0.6 oz pur e alcohol) Sex Assigned at Date Recorded Not on file Job Start Date Occupation [...] as of this encounter Miscellaneous Notes * Telephone Encounter - Ann Marie Roldan LPN - 11/21/2022 9:18 AM EDT Attempted to contact patient to see if he would like to be seen tomorrow instead of waiting till 12/27 in [place]. Left message to return phone call. Ann Marie Roldan LPN 11/21/2022 9:19 AM * Telephone Encounter - TREY Marinelli - 11/21/2022 9:15 AM EDT Ann Marie Can you please call patient. Referred to us for venous disease. Scheduled 12/27 at [place]. Can you see if he would like to see us tomorrow (11/22) - we have an opening? TREY Silva 11/21/2022 9:15 AM documented in this encounter Plan of Treatment Upcoming Encounters Date Type Specialty Care Team Description 12/27/2022 Office Visit Vascular Surgery Bony Rodriguez MD [address] [place] [address] Scheduled Procedures Name Priority Associated Diagnoses Date/Ti me COLONOSCOPY FLEXIBLE PROXIMA L DIAGNOSTIC Recall History of colonic polyps Health Maintenance Due Date Last Done Comments COVID-19 Vaccine (#1) 02/26/1956 Zoster Vaccines (1 of 2) 2006 Depression Screening, Annual for Pts 12 and Over 01/07/2019 01/07/2018 DTaP,Tdap,and Td Vaccines (2 - [...] the patient have Health Care Power of Chain Builder? No Care Teams Combining Machine Operator Relationship Specialty Start Date End Date Shane Zhu, [address] [facility] [place] [address] PCP - General Family Medicine 07/31/22 documented as of this encounter
--- OUTSIDE RECORDS SUMMARY | 2023-03-15 00:39 | External Medical Summary | Summary of Care ---
Author Name Unknown Organization [facility] Address [address] [facility] [address] Phone [phone] Care Team Providers Care Test Eng Name Role Phone Shane Zhu DO Primary Care Provider [phone] Reason for Visit * Reason Onset Date Comments Advice 10/18/2022 Encounter Details Date Type Department Care Team Description 10/18/2022 Telephone General Surgery Julianna Maldonado [address] [place] [address] [address] Meredith Lara DO [address] [place] [address] [place] [address] Advice Allergies Active Allergy Reactions Severity Noted Date Comments Bzhadvaiy-Xszshjdy-Iw 01/24/2009 Dymatapp- burning palms documented as of this encounter (statuses as of 01/17/2023) Medications Medication Sig Dispensed Refills Start Date [...] as of this encounter (statuses as of 01/17/2023) Active Problems Problem Noted Date Elevated prostate specific antigen (PSA) 02/06/2013 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 Celina needs to know if patient has surgery for his appendix with Dr Lara and what his return to work date is going to be. documented in this encounter Plan of Treatment Upcoming Encounters Date Type Specialty Care Team Description 03/04/2023 Office Visit Dermatology Moon Aguayo, PAHenokC [address] [place] [address] [place] [address] Scheduled Procedures Name Priority Associated Diagnoses Date/Ti [...] the patient have Health Care Power of Filler Feeder? No Care Teams Test Eng Relationship Specialty Start Date End Date Shane Zhu, DO [address] [facility] [place] [id number] PCP - General Family Medicine 07/31/22 documented as of this encounter
--- OUTSIDE RECORDS SUMMARY | 2023-03-15 00:39 | External Medical Summary ---
Author Name Unknown Address Unknown Organization K01[facility] [place] [address] [place] [address] Laboratory Report Ordering Provider Test Date Status RUSSELL GREENE 02/20/2023 15:21:32 Final Observation Date Value Abnormality Reference (Units ) Status WBC, Total 02/20/2023 15:21:32 9.43 4.00-10.80 (K/uL) Final RBC 02/20/2023 15:21:32 4.53 4.50-5.25 (M/uL) Final Hemoglobin 02/20/2023 15:21:32 14.2 14.0-16.8 (g/dL) Final HCT 02/20/2023 15:21:32 43.7 40.0-48.4 (%) Final MCV 02/20/2023 15:21:32 96.5 82.0-99.5 (fL) Final MCH 02/20/2023 15:21:32 31.3 27.0-34.0 (pg) Final MCHC 02/20/2023 15:21:32 32.5 32.0-36.0 (g/dL) Final RDW 02/20/2023 15:21:32 12.5 11.5-15.5 (%) Final Platelets 02/20/2023 15:21:32 233 140-400 (K/uL) Final MPV 02/20/2023 15:21:32 10.4 6.6-11.1 (fL) Final Nucleated erythrocytes/100 leukocytes [Ratio] in Blood by Automated count 02/20/2023 15:21:32 0 <=0 (/100 WBCs) Final Performing Location [facility] [place] [address] [address] [address]
--- OUTSIDE RECORDS SUMMARY | 2023-03-15 00:39 | External Medical Summary | Summary of Care ---
Author Name Unknown Organization [facility] Address [address] [place] [facility] [facility] [place] [address] Phone [phone] Care Team Providers Care Rn Lactation Consultant Name Role Phone Shane Zhu DO Primary Care Provider [phone] Reason for Visit * Reason Comments Post Op Surgery Encounter Details Date Type Department Care Team Description 10/17/2022 Office Visit General Surgery Julianna Maldonado [address] [place] [address] [place] [address] Meredith Lara DO [address] [place] [address] [place] [address] Postop check* Allergies Active Allergy Reactions Severity Noted Date Comments Wfhptlcns-Lyaokfra-Tq 01/24/2009 Dymatapp- burning palms documented as of this encounter (statuses as of 10/17/2022) Medications Medication Sig Dispensed Refills Start Date End Date Status MULTIVITAMINS PO CAPS one cap daily 0 0 01/24/2009 Active METAMUCIL 0.52 GM PO CAPS 2 in AM 60 Cap 0 12/26/2009 Active VIAGRA 50 MG PO TABSIndications: Impotence of organic origin One pill by mouth 1-4 hours before intercourse, no more than 1 dose in 24 hours. 10 Tab 5 11/13/2010 Active Additional Information Patient not taking.Reported on 10/02/2022 TRIAMCINOLONE ACETONIDE 0.1 % EX CREAIndications: Dermatitis Apply to affected area twice a day 80 g 5 02/05/2013 Active furosemide (LASIX) 20 MG Tablet Take 20 mg by mouth daily. 0 Active Acetaminophen 325 MG Oral Tablet (Tylenol) Take 3 Tablets by mouth every 6 hours. 30 Tablet 0 10/03/2022 Active Docusate Sodium 100 MG Oral Capsule (Colace) Take 1 Capsule by mouth in the morning and 1 Capsule before bedtime. 28 Capsule 0 10/03/2022 3 Discontinue d(End of Procedure) oxyCODONE HCl 5 MG Oral Tablet (Oxy IR) Take 1 Tablet by mouth every 4 hours as needed for Pain, Severe. 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 Overview: Viagra prn Dermatitis 01/27/2010 Benign neoplasm of colon 03/09/2009 Overview: Colonoscopy 2008: adenomatous/acute rectal cryptitis/repeat colonoscopy 2011 documented as of this encounter (statuses as of 10/17/2022) Immunizations Name Administration Dates Next Due TDAP (age 11 and older)(Adacel) 06/22/2011 documented as of this encounter Social History Tobacco Use Types Packs/Day Years Used Date Smoking Tobacco: Never Smokeless Tobacco: Never Tobacco Cessation:Counseling Given: No Alcohol Use Standard Drinks/Week Comments No 0 (1 standard drink = 0.6 oz pur e alcohol) Sex Assigned at Date Recorded Not on file Job Start Date Occupation Industry Not on file Not on file Not on file documented as of this encounter Last Filed Vital Signs Vital Sign Reading Time Taken Comments Blood Pressure 110/72 10/17/2022 11:42 AM EDT Pulse 85 10/17/2022 11:42 AM EDT Temperature 36.4 C (97.6 F) 10/17/2022 11:42 AM E DT Respiratory Rate - - Oxygen Saturation - - Inhaled Oxygen Concentration - - Weight 103.9 kg (229 lb) 10/17/2022 11:42 AM EDT Height - - Body Mass Index 31.06 10/02/2022 3:18 AM EDT documented in this encounter Functional Status Functional Status Response [...] as of this encounter Progress Notes * Meredith Lara DO - 10/17/2022 11:41 AM EDT GENERAL SURGERY Josue Page [id number] Subjective: Josue Page is a 67 year old male who is status post laparoscopic appendectomy on 10/02/22. He is doing well. Denies pain. Tolerating his diet without N/V. BMs are regular. Compliant with activity restrictions. Objective: BP 110/72 | Pulse 85 | Temp 36.4 C (97.6 F) (Temporal Artery) | Wt 103.9 kg (229 lb) | BMI 31.06 kg/m | BSA 2.3 m General:alert and oriented x 3 and NAD Abdomen:Soft, non distended, non tender, incisions healing well Pathology: Final Diagnosis A. Appendix, appendectomy: Acute appendicitis with serositis and perforation. Assessment: 67 y/o male with h/o perforated appendicitis s/p laparoscopic appendectomy on 10/03/22, doing well Plan: Activity restrictions x 2 more weeks Pathology reviewed F/U prn Meredith Lara DO General Surgery Julianna Maldonado [address] [place] [address] [place] [address] documented in this encounter Nursing Notes * Maria Cody CMA - 10/17/2022 11:40 AM EDT Chief Complaint Patient presents with Post Op Surgery Pt here for post op Laparoscopic appendectomy on 10/02/22. Patient doing well with no complications. Incision healing well. Denies redness, swelling, dehiscence, or drainage. Denies N/V, fevers, chills, sweats. Pain is 0/10. Bowels are moving well with no problems. Appetite normal. documented in this encounter Plan of Treatment [...] as of this encounter Visit Diagnoses Diagnosis Postop check- Primary Follow-up examination, following unspecified surgery documented in this encounter Advance Directives Latest [...] the patient have Health Care Power of Nail Professional? No Care Teams Rn Lactation Consultant Relationship Specialty Start Date End Date Shane Zhu, DO [address] [place] [address] PCP - General Family Medicine 07/31/22 documented as of this encounter"
--- OUTSIDE RECORDS SUMMARY | 2023-03-15 00:39 | External Medical Summary | Summary of Care ---
Author Name Unknown Organization [facility] Address [address] [place] [address] Phone [phone] Care Team Providers Care Small Engine Trainer Name Role Phone Shane Zhu DO Primary Care Provider [phone] Reason for Visit * Reason Onset Date Comments Appointment 11/21/2022 Encounter Details Date Type Department Care Team Description 11/21/2022 Telephone Vascular Surg [facility] [address] [place], [place] [phone] Edwin Jennings CRNP [address] [place] [address] Appointment Allergies Active Allergy Reactions Severity Noted Date Comments Ccnqnadec-Gcymelwc-Js 01/24/2009 Dymatapp- burning palms documented as of this encounter (statuses as of 11/21/2022) Medications Medication Sig Dispensed Refills Start Date [...] as of this encounter (statuses as of 11/21/2022) Active Problems Problem Noted Date Elevated prostate specific antigen (PSA) 02/06/2013 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 Left message to return phone call. Ann Marie Roldan LPN 11/21/2022 9:19 AM * Telephone Encounter - TREY Marinelli - 11/21/2022 9:15 AM EDT Ann Marie Can you please call patient. Referred to us for venous disease. Scheduled 12/27 at [place]. Can you see if he would like to see us tomorrow (11/22) - we have an opening? TREY Silva 11/21/2022 9:15 AM documented in this encounter Plan of Treatment Upcoming Encounters Date Type Specialty Care Team Description 12/27/2022 Office Visit Vascular Surgery Bony Rodriguez MD [address] [place] [address] Scheduled Procedures Name Priority Associated Diagnoses Date/Ti [...] the patient have Health Care Power of Dust Collector Ore Crushing? No Care Teams Small Engine Trainer Relationship Specialty Start Date End Date Shane Zhu, [address] [facility] [place] [address] PCP - General Family Medicine 07/31/22 documented as of this encounter
--- OUTSIDE RECORDS SUMMARY | 2023-03-15 00:39 | External Medical Summary ---
Author Name Unknown Address Unknown Organization K01:[facility] [place] [address] [facility] [address] [facility] [address] Laboratory Report Ordering Provider Test Date Status RUSSELL GREENE 02/20/2023 15:21:32 Final Observation Date Value Abnormality Reference (Units ) Status BUN 02/20/2023 15:21:32 21 Above high normal 6-20 (mg/dL) Final Creatinine 02/20/2023 15:21:32 1.0 0.6-1.2 (mg/dL) Final Glomerular filtration rate/1.73 sq M.predicted [Volume Rate/Area] in Serum, Plasma or Blood by Creatinine-based formula (CKD-EPI) 02/20/2023 15:21:32 80 >=60 (mL/min) Final eGFR is calculated based on the CKD-EPI 2020 equation SODIUM 02/20/2023 15:21:32 141 135-146 (m mol/L) Final Potassium 02/20/2023 15:21:32 4.2 3.5-5.1 (m mol/L) Final Cl 02/20/2023 15:21:32 104 98-107 (mm ol/L) Final CO2 02/20/2023 15:21:32 28 22-32 (mmo l/L) Final Anion gap 02/20/2023 15:21:32 9 7-15 (mmol /L) Final Glucose 02/20/2023 15:21:32 84 70-120 (mg /dL) Final Calcium 02/20/2023 15:21:32 9.1 8.4-10.2 ( mg/dL) Final Performing Location [facility] [place] - [address] [place] [address]
--- OUTSIDE RECORDS SUMMARY | 2023-03-15 00:39 | External Medical Summary | Summary of Care ---
Author Name Unknown Organization [facility] Address [address] [place] [address] Phone [phone] Care Team Providers Care Spectral Scientist Name Role Phone Shane Zhu DO Primary Care Provider [phone] Reason for Visit * Reason Onset Date Comments Appointment 11/21/2022 Encounter Details Date Type Department Care Team Description 11/21/2022 Telephone Vascular Surg [facility] [address] [place], [place] [phone] Edwin Jennings CRNP [address] [place] [address] Appointment Allergies Active Allergy Reactions Severity Noted Date Comments Fmwdibsrf-Dnuqsvtx-Tb 01/24/2009 Dymatapp- burning palms documented as of [...] tomorrow instead of waiting till 12/27 in [place]. Left message to return phone call. Ann Marie Roldan LPN 11/21/2022 9:19 AM * Telephone Encounter - TRYE Marinelli - 11/21/2022 9:15 AM EDT Ann Marie Can you please call patient. Referred to us for venous disease. Scheduled 12/27 at [place]. Can you see if he would like to see us tomorrow (11/22) - we have an opening? TREY Silva 11/21/2022 9:15 AM documented in this encounter Plan of Treatment Upcoming Encounters Date Type Specialty Care Team Description 12/27/2022 Office Visit Vascular Surgery Bony Rodriguez MD [address] [place] [address] Scheduled Procedures Name Priority Associated Diagnoses Date/Ti [...] the patient have Health Care Power of Hotel Breakfast Attendant? No Care Teams Spectral Scientist Relationship Specialty Start Date End Date Shane Zhu, [address] [facility] [place] [address] PCP - General Family Medicine 07/31/22 documented as of this encounter
--- OUTSIDE RECORDS SUMMARY | 2023-03-15 00:39 | External Medical Summary | Summary of Care ---
Author Name Unknown Organization [facility] Address [address] [facility] [place] [place] [address] Phone [phone] Care Team Providers Care Compensation And Hris Analyst Name Role Phone Shane Zhu DO Primary Care Provider + [phone] Reason for Referral * Evaluate & Treat - Unlimited Visits (Within 10 days (routine)) - Pending Review Specialty Diagnoses / Procedures Referred By Dinh cain Referred To Contact Dermatology Diagnoses Rash and other nonspecific skin eruption Shane Zhu DO [address] [place] [address] Referral ID Status Reason Start Date Expiration Date Visits Requested Visits Authorized [id number] Pending Review Specialty Services Required 11/26/2022 999 999 Question Answer Referral Priority Within 10 days (routine) Are you referring the patient for Mohs Surgery and have a current positive skin cancer biopsy result? No What is the reason for the patient referral? Rash/Skin Check/Eval of Lesion or Mole Comments Notes scanned in Epic on 11/26/22 Encounter Details Date Type Department Care Team Description 11/26/2022 Orders Only Access [facility], [facility] [address] [facility] *DO NOT REMOVE THIS DEPARTMENT* [place] [id number] Request, External Referral Rash and other nonspecific skin eruption* Allergies Active Allergy Reactions Severity Noted Date Comments Kqqznxrrd-Kqsomfqi-Be 01/24/2009 Dymatapp- burning palms documented as of this encounter (statuses as of 11/26/2022) Medications Medication Sig Dispensed Refills Start Date [...] as of this encounter (statuses as of 11/26/2022) Active Problems Problem Noted Date Elevated prostate specific antigen (PSA) 02/06/2013 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23 Office Visit Dermatology Moon Aguayo PA-C [address] [place] [address] [place] [id number] Scheduled Procedures Name Priority Associated Diagnoses Date/Ti me COLONOSCOPY FLEXIBLE PROXIMA L DIAGNOSTIC Recall History of colonic polyps Scheduled Referrals Name Type Priority Associated Diagnoses Orde r Schedule DERMATOLOGY REFERRAL OP Referral Within 10 days (routine) Rash and other nonspecific skin eruption Ordered: 11/26/2022 Health Maintenance Due Date Last Done Comments [...] as of this encounter Visit Diagnoses Diagnosis Rash and other nonspecific skin eruption- Primary documented in this encounter Advance Directives Latest [...] the patient have Health Care Power of Fourth Grade Teacher? No Care Teams Compensation And Hris Analyst Relationship Specialty Start Date End Date Shane Zhu, DO [address] [facility] [place] [address] PCP - General Family Medicine 07/31/22 documented as of this encounter
--- OUTSIDE RECORDS SUMMARY | 2023-03-15 00:40 | External Medical Summary ---
Author Name Unknown Address Unknown Organization [facility]:LABORATORY [address] [place] [address] Laboratory Report Ordering Provider Test Date Status GINAOLIVA 10/02/2022 02:04:30 Final Observation Date Value Abnormality Reference (Units ) Status Bacteria identified in Unspecified specimen by Culture 10/02/2022 02:04:30 No growth Final Test: Culture, Blood (Site 2)
Specimen Source: Blood, Venous
Specimen Type: Blood
Specimen Date: 10/02/2022 2:04 AM
Result Date: 10/07/2022 3:01 AM
Result Status: Final result
Resulting Lab: LABORATORY [facility]
[address] [place] [address]
[place] [address]

CULTURE

No growth

null Performing Location LABORATORY [address] [place] [address]
--- OUTSIDE RECORDS SUMMARY | 2023-03-15 00:40 | External Medical Summary ---
Author Name Unknown Address Unknown Organization [facility]:LAB[facility]ATORY [facility] - [address] [place] [address] Laboratory Report Ordering Provider Test Date Status OLIVA FUENTES 10/02/2022 00:14:54 Final SCREENING Observation Date Value Abnormality Reference (Units ) Status SARS Coronavirus 2 10/02/2022 00:14:54 Negative N egative Final 2019 Novel Coronavirus not d etected.

This express test was developed and its performance characteristics determined by [facility]. It has not been cleared or approved by the U.S. Food and Drug Administration (FDA). FDA does not require this test to go thru premarket FDA review. This test is used for clinical purposes. It should not be regarded as investigational or for research. This laboratory is certified under the Clinical Laboratory Improvement Amendments (CLIA) as qualified to perform high complexity clinical laboratory testing.

This test is a nucleic acid amplification test (NAAT), a reverse transcriptase polymerase chain reaction (RT-PCR) test, or a Centers for Disease Control-acceptable equivalent. The test is performed in a high complexity Clinical Laboratory Improvement Amendments-(CLIA) certified laboratory. The test is acceptable for SARS-CoV-2 diagnosis, surveillance, and travel within the [place] and to most countries. Please check with local testing authorities about requirements before travel.

The validation of bronchial specimens, tracheal aspirates, and sputum for this assay was developed and performance characteristics determined by [facility]. The validation of alternate specimen types has not been cleared or approved by the U.S. Food and Drug Administration (FDA). It has been determined that such clearance is not necessary. Performing Location [facility]ATORY [facility] [address] [facility] [address] [address]
--- OUTSIDE RECORDS SUMMARY | 2023-03-15 00:40 | External Medical Summary ---
Author Name Unknown Address Unknown Organization [facility]:LABORATORY [facility] - [address] [place] [address] Laboratory Report Ordering Provider Test Date Status ANALI JEAN 10/02/2022 04:37:00 Final Observation Date Value Abnormality Reference (Units ) Status BUN 10/02/2022 04:37:00 15 6-20 (mg/dL) Final Creatinine 10/02/2022 04:37:00 1.0 0.6-1.2 (mg/dL) Final Glomerular filtration rate/1.73 sq M.predicted [Volume Rate/Area] in Serum, Plasma or Blood by Creatinine-based formula (CKD-EPI) 10/02/2022 04:37:00 80 >=60 (mL/min) Final eGFR is calculated based on the CKD-EPI 2020 equation SODIUM 10/02/2022 04:37:00 139 135-146 (m mol/L) Final Potassium 10/02/2022 04:37:00 3.7 3.5-5.1 (m mol/L) Final Cl 10/02/2022 04:37:00 107 98-107 (mm ol/L) Final CO2 10/02/2022 04:37:00 25 22-32 (mmo l/L) Final Anion gap 10/02/2022 04:37:00 7 7-15 (mmol /L) Final Glucose 10/02/2022 04:37:00 97 70-120 (mg /dL) Final Calcium 10/02/2022 04:37:00 8.1 Below low normal 8.4 -10.2 (mg/dL) Final Performing Location LABORATORY [facility] - [address] [place] [address]
--- OUTSIDE RECORDS SUMMARY | 2023-03-15 00:40 | External Medical Summary ---
Author Name Unknown Address Unknown Organization K1[facility]:LABORATORY [facility] - [address] [place] [address] Laboratory Report Ordering Provider Test Date Status ANALI JEAN 10/02/2022 04:37:00 Final Observation Date Value Abnormality Reference (Units ) Status WBC, Total 10/02/2022 04:37:00 18.12 Above high normal 4.00-10.80 (K/uL) Final RBC 10/02/2022 04:37:00 3.94 4.50-5.25 (M/uL) Final Hemoglobin 10/02/2022 04:37:00 12.1 Below low normal 14.0-16.8 (g/dL) Final HCT 10/02/2022 04:37:00 36.8 Below low normal 40.0-48.4 (%) Final MCV 10/02/2022 04:37:00 93.4 82.0-99.5 (fL) Final MCH 10/02/2022 04:37:00 30.7 27.0-34.0 (pg) Final MCHC 10/02/2022 04:37:00 32.9 32.0-36.0 (g/dL) Final RDW 10/02/2022 04:37:00 12.5 11.5-15.5 (%) Final Platelets 10/02/2022 04:37:00 165 140-400 (K/uL) Final MPV 10/02/2022 04:37:00 9.6 6.6-11.1 (fL) Final Nucleated erythrocytes/100 leukocytes [Ratio] in Blood by Automated count 10/02/2022 04:37:00 0 <=0 (/100 WBCs) Final Performing Location LABORATORY [facility] - [address] [place] [address]
--- OUTSIDE RECORDS SUMMARY | 2023-03-15 00:40 | External Medical Summary ---
Author Name Unknown Address Unknown Organization K1[facility]:LABORATORY [facility] - [address] [place] [address] Laboratory Report Ordering Provider Test Date Status ЕЛЕНА PALMA 10/01/2022 21:12:00 Fin al Observation Date Value Abnormality Reference (Units ) Status Lactic Acid 10/01/2022 21:12:00 1.3 0.4-2.0 (mmol/L) Final Performing Location LABORATORY [facility] - [address] [place] [address]
--- OUTSIDE RECORDS SUMMARY | 2023-03-15 00:40 | External Medical Summary ---
Author Name Unknown Address Unknown Organization [facility]:LABORATORY [address] [place] [address] Laboratory Report Ordering Provider Test Date Status GINAOLIVA 10/02/2022 00:33:55 Final Observation Date Value Abnormality Reference (Units ) Status Bacteria identified in Unspecified specimen by Culture 10/02/2022 00:33:55 No growth Final Test: Culture, Blood
Sp ecimen Source: Blood, Venous
Specimen Type: Blood
Specimen Date: 10/02/2022 12:33 AM
Result Date: 10/07/2022 1:01 AM
Result Status: Final result
Resulting Lab: LABORATORY [facility]
[address] [place] [address]
[place] [address]

CULTURE

No growth

null Performing Location LABORATORY [address] [place] [address]
--- OUTSIDE RECORDS SUMMARY | 2023-03-15 00:40 | External Medical Summary ---
Author Name Unknown Address Unknown Organization K1F:LABORATORY [facility] - [facility] [address] [place] [address] Laboratory Report Ordering Provider Test Date Status ЕЛЕНА PALMA 10/01/2022 23:18:24 Fin al Observation Date Value Abnormality Reference (Units ) Status Color of Urine by Auto 10/01/2022 23:18:24 Yellow Light Yellow, Yellow, Dark Yellow Final Clarity, Urine 10/01/2022 23:18:24 Clear Clear Final Glucose [Mass/volume] in Urine by Automated test strip 10/01/2022 23:18:24 Negative Negative (mg/dL) Final Bilirubin.total [Presence] in Urine by Automated test strip 10/01/2022 23:18:24 Negative Negative Final Ketones [Mass/volume] in Urine by Automated test strip 10/01/2022 23:18:24 Negative Negative (mg/dL) Final Specific gravity, Urine 10/01/2022 23:18:24 1.026 1.003-1.030 Final Hemoglobin [Presence] in Urine by Automated test strip 10/01/2022 23:18:24 Negative Negative Final pH, Urine 10/01/2022 23:18:24 6.0 5.0-7.5 (Units) Final Protein [Mass/volume] in Urine by Automated test strip 10/01/2022 23:18:24 30 Abnormal Negative (mg/dL) Final Urobilinogen [Mass/volume] in Urine by Automated test strip 10/01/2022 23:18:24 4.0 Abnormal 0.2, 1.0 (mg/dL) Final Nitrite [Presence] in Urine by Automated test strip 10/01/2022 23:18:24 Negative Negative Final Leukocyte esterase [Presence] in Urine by Automated test strip 10/01/2022 23:18:24 Negative Negative Final Performing Location LABORATORY [facility] - [address] [place] [address]
--- OUTSIDE RECORDS SUMMARY | 2023-03-15 00:40 | External Medical Summary ---
Author Name Unknown Address Unknown Organization [facility]:LABORATORY [facility] - [address] [facility]. [place] [address] Laboratory Report Ordering Provider Test Date Status ЕЛЕНА PALMA 10/01/2022 21:12:00 Fin al Observation Date Value Abnormality Reference (Units ) Status BUN 10/01/2022 21:12:00 18 6-20 (mg/dL) Final Creatinine 10/01/2022 21:12:00 1.1 0.6-1.2 (mg/dL) Final Glomerular filtration rate/1.73 sq M.predicted [Volume Rate/Area] in Serum, Plasma or Blood by Creatinine-based formula (CKD-EPI) 10/01/2022 21:12:00 71 >=60 (mL/min) Final eGFR is calculated based on the CKD-EPI 2020 equation SODIUM 10/01/2022 21:12:00 137 135-146 (m mol/L) Final Potassium 10/01/2022 21:12:00 3.8 3.5-5.1 (m mol/L) Final Cl 10/01/2022 21:12:00 102 98-107 (mm ol/L) Final CO2 10/01/2022 21:12:00 27 22-32 (mmo l/L) Final Anion gap 10/01/2022 21:12:00 8 7-15 (mmol /L) Final Glucose 10/01/2022 21:12:00 122 Above high normal 70 -120 (mg/dL) Final Albumin 10/01/2022 21:12:00 3.8 3.8-5.0 (g /dL) Final AST (Aspartate aminotransferase) 10/01/2022 21:12:00 21 10-50 (U/L) Fin al Alk Phos 10/01/2022 21:12:00 74 35-130 (U/ L) Final Bilirubin, Total 10/01/2022 21:12:00 1.5 Above high no rmal <=1.2 (mg/dL) Final Calcium 10/01/2022 21:12:00 8.5 8.4-10.2 ( mg/dL) Final Protein 10/01/2022 21:12:00 6.7 6.0-8.3 (g /dL) Final ALT (Alanine aminotransferase) 10/01/2022 21:12:00 14 10-50 (U/L) Omari mcelroy Performing Location LABORATORY [facility] - [address] [place], [place] [address] [place]. [place] [address]
--- OUTSIDE RECORDS SUMMARY | 2023-03-15 00:40 | External Medical Summary | Summary of Care ---
Author Name Unknown Organization [facility] Address [address] [place] [address] Phone [phone] Care Team Providers Care Boarding House Manager Name Role Phone Shane Zhu DO Primary Care Provider [phone] Reason for Visit * Reason Comments Abdominal Pain * Auth/Cert Specialty Diagnoses / Procedures Referred By Contac t Referred To Contact Referral ID Status Reason Start Date Expiration Date Visits Re quested Visits Authorized [id number] Encounter Details Date Type Department Care Team Description 10/01/2022 - 10/03/2022 Emergency 5A [facility] 5th Floor [address] [place] [id number] Micky Wright MD [address] [facility] [place] [id number] Meredith Lara DO [address] [place], [place] [id number] Pt Handout (on AVS) Allergies Active Allergy Reactions Severity Noted Date Comments Poioewdps-Ykospcmx-Zs 01/24/2009 Dymatapp- burning palms documented as of this encounter (statuses as of 10/04/2022) Medications Medication Sig Dispensed Refills Start Date End Date Status MULTIVITAMINS PO CAPS one cap daily 0 0 01/24/2009 Active METAMUCIL 0.52 GM PO CAPS 2 in AM 60 Cap 0 12/26/2009 Active VIAGRA 50 MG PO TABSIndications:Im potence of organic origin One pill by mouth 1-4 hours before intercourse, no more than 1 dose in 24 hours. 10 Tab 5 11/13/2010 Active Additional Information Patient not taking.Reported on 10/02/2022 TRIAMCINOLONE ACETONIDE 0.1 % EX CREAIndications:De rmatitis Apply to affected area twice a day 80 g 5 02/05/2013 Active furosemide (LASIX) 20 MG Tablet Take 20 mg by mouth daily. 0 Active Docusate Sodium 100 MG Oral Capsule (Colace) Take 1 Capsule by mouth in the morning and 1 Capsule before bedtime. 28 Capsule 0 10/03/2022 Active Acetaminophen 325 MG Oral Tablet (Tylenol) Take 3 Tablets by mouth every 6 hours. 30 Tablet 0 10/03/2022 Active oxyCODONE HCl 5 MG Oral Tablet (Oxy IR) Take 1 Tablet by mouth every 4 hours as needed for Pain, Severe. 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 Overview: Viagra prn Dermatitis 01/27/2010 Benign neoplasm of colon 03/09/2009 Overview: Colonoscopy 2008: adenomatous/acute rectal cryptitis/repeat colonoscopy 2011 documented as of this encounter (statuses as of 10/04/2022) Immunizations Name Administration Dates Next Due TDAP [...] Sign Reading Time Taken Comments Blood Pressure 122/74 10/03/2022 7:31 AM EDT Pulse 44 10/03/2022 7:31 AM EDT Temperature 36.2 C (97.2 F) 10/03/2022 7:31 AM ED T Respiratory Rate 16 10/03/2022 7:31 AM EDT Oxygen Saturation 95% 10/03/2022 7:31 AM EDT Inhaled Oxygen Concentration - - Weight 105.2 kg (232 lb) 10/02/2022 3:18 AM EDT Height 182.9 cm (6') 10/02/2022 3:18 AM EDT Body Mass Index 31.46 10/02/2022 3:18 AM EDT documented in this [...] No 10/02/2022 documented as of this encounter Discharge Summaries * Meredith Lara DO - 10/03/2022 9:53 AM EDT [address] [address] Admission Date: 10/01/2022 Discharge Date: 10/03/2022 DISCHARGE DIAGNOSES: Acute appendicitis Other Significant Diagnoses: none CONDITION ON DISCHARGE: stable Cognition: normal DISPOSITION ON DISCHARGE: home FOLLOW-UP: Future Appointments Appt Date/Time Provider Department 10/11/2022 11:10 AM [facility] 11:45 AM Meredith Lara DO [facility] App[facility]ments: follow up with Dr. Lara on 10/17/22. Outpatient testing already scheduled: n/a Outpatient testing that needs to be arranged: n/a Inpatient test results pending: Surgical pathology MEDICATIONS ON DISCHARGE: MEDICATION UPDATES AT DISCHARGE START taking these medications INSTRUCTIONS Acetaminophen 325 MG Tablet Commonly known as: Tylenol Take 3 Tablets by mouth every 6 hours. Docusate Sodium 100 MG Capsule Commonly known as: Colace Take 1 Capsule by mouth in the morning and 1 Capsule before bedtime. oxyCODONE 5 MG immediate release tablet Commonly known as: Oxy IR Take 1 Tablet by mouth every 4 hours as needed for Pain, Severe. CONTINUE taking these medications INSTRUCTIONS Multivitamins Capsule one cap daily Triamcinolone Acetonide 0.1 % cream Commonly known as: Aristocort Apply to affected area twice a day CONTINUE taking these medications but follow up with your Primary Care Physician (PCP). INSTRUCTIONS Furosemide 20 MG Tablet Commonly known as: Lasix Take 20 mg by mouth daily. Metamucil 0.52 g Capsule Generic drug: Psyllium 2 in AM Viagra 50 MG Tablet Generic drug: Sildenafil Citrate One pill by mouth 1-4 hours before intercourse, no more than 1 dose in 24 hours. ALLERGIES: Cold & cough [kresjltdd-qgxuzpuw-ti] INSTRUCTIONS: Activity: No strenuous activity for 4 weeks No lifting or pushing or pulling more than 10 lbs for 4 weeks Diet: normal diet Code status (this admission): Full Code Discussion of adv directives occurred with - adult: Not Discussed due to patient's condition Does patient have living will: No Does patient have health care power of traffic law attorney: No Indwelling devices: none ADMISSION HISTORY & PHYSICAL EXAM (focused): HISTORY OF PRESENT ILLNESS: Josue Page is a 67 year old, male who presented to the ED with RLQ abdominal pain which began suddenly in the afternoon 2 days ago. Associated with fevers and nausea. Pain is worse with coughing and moving. Surgical history significant for left inguinal hernia repair. He is a nonsmoker. HOSPITAL PROBLEM LIST: Active Problems: * No active hospital problems. * POA = Present On Admission PAST MEDICAL HISTORY: Past Medical History: Diagnosis Date Benign neoplasm of colon 03/09/09 adenomatous/acute rectal cryptitis/repeat colonoscopy in 3-5 yrs PAST SURGICAL HISTORY: Past Surgical History: Procedure Laterality Date COLONOSCOPY THRU STOMA, W/BIOPSY 03/09/09 adenomatous/acute rectal cryptitis/repeat colonoscopy in 3-5 yrs COLONOSCOPY, DIAGNOSTIC (RECTUM) 02/15/2014 normal, repeat in 5 yrs/COLONOSCOPY FLEXIBLE PROXIMAL DIAGNOSTIC performed by Gabino Benoit MD at [facility] COLONOSCOPY, DIAGNOSTIC (RECTUM) N/A 04/10/2019 diverticulois sigmoid colon/recall 5 years/COLONOSCOPY FLEXIBLE PROXIMAL DIAGNOSTIC performed byXenia Greco DO at OR [facility] REPAIR INITIAL INGUINAL HERNIA REDUCIBLE AGE 5 OR MORE 1992 R IHR FAMILY HISTORY: Family History Problem Relation Age of Onset Cancer Mother type unknown- age 39 Diabetes Father No Past Hx Sister No Past Hx Brother No Past Hx None No FH early CAD, no colon or prostate cancer SOCIAL HISTORY: Social History Tobacco Use Smoking status: Never Smokeless tobacco: Never Substance Use Topics Alcohol use: No Drug use: No CURRENT HOSPITAL MEDICATIONS: Note that completed medications (per the MAR) continue to display for 24 hours. Ordered medicationsto be given in the future also display. Current Facility-Administered Medications Medication Dose Route Frequency Provider Acetaminophen (Tylenol) tab 975 mg 975 mg Oral Q6H PRN Meredith Gretschel, DO Docusate Sodium (Colace) cap 100 mg 100 mg Oral BID(AM/PM) Meredith Gretschel, DO HYDROmorphone (Dilaudid) inj 0.5 mg 0.5 mg IV Push Q3H PRN Meredith Gretschel, DO isolyte-S pH 7.4 infusion Intravenous Continuous Meredith Gretschel, DO naloxone (Narcan) 0.4 MG/ML inj 0.08 mg 0.08 mg IV Push PRN Meredith Gretschel, DO ondansetron ODT (Zofran) tab 4 mg 4 mg On Tongue Q6H PRN Meredith Gretschel, DO Or ondansetron (Zofran) inj 4 mg 4 mg IV Push Q6H PRN Meredith Gretschel, DO oxyCODONE (Oxy IR) tab 10 mg 10 mg Oral Q4H PRN Meredith Gretschel, DO oxyCODONE (Oxy IR) tab 5 mg 5 mg Oral Q4H PRN Meredith Gretschel, DO piperacillin-tazobactam (ZOSYN) 4.5 g in D5W 100 mL (FOUR hour infusion) 4.5 g IV Piggyback Q8HNow Meredith Gretschel, DO ALLERGIES: Cold & cough [yraxogrcv-dalrcmjx-wr] ROS: Constitutional: (+) fever and (-) otherwise negative Abdominal/GI: (+) nausea, (+) abdominal pain and (-) otherwise negative All other systems reviewed and negative except as described in the HPI. PHYSICAL EXAMINATION: Most Recent Vital Signs: BP: 125 mmHg/69 mmHg (10/02/22734) Pulse: 71 (10/02/22734) Temp: 37.61 C (10/02/22734) Resp: 16 (10/02/22734) SpO2: 94 % (10/02/22734) Constitutional: no acute distress HEENT: normal: normocephalic, atraumatic; no masses, tenderness, or adenopathy Eyes: sclera and conjunctiva normal Neck: supple, normal range of motion CV: normal rate, normal rhythm Chest: normal respiratory effort Abdomen: soft, RLQ tenderness, mildly distended , no rebound or guarding Extremities: no clubbing, cyanosis, or edema, otherwise grossly normal, warm, and dry Skin: warm, dry, intact: Neuro: alert, oriented to person, place, and time Psych: normal mood and affect, judgement normal LABS: Labs reviewed as indicated below: Latest Reference Range & Units 10/02/22 04:37 Sodium 135 - 146 mmol/L 139 Potassium 3.5 - 5.1 mmol/L 3.7 Chloride 98 - 107 mmol/L 107 CO2 22 - 32 mmol/L 25 BUN 6 - 20 mg/dL 15 Creatinine 0.6 - 1.2 mg/dL 1.0 Estimated Glomerular Filtration Rate >=60 mL/min 80 Anion Gap 7 - 15 mmol/L 7 Glucose 70 - 120 mg/dL 97 Calcium 8.4 - 10.2 mg/dL 8.1 (L) CBC Rpt ! WBC 4.00 - 10.80 K/uL 18.12 (H) HGB 14.0 - 16.8 g/dL 12.1 (L) HCT 40.0 - 48.4 % 36.8 (L) MCV 82.0 - 99.5 fL 93.4 PLT 140 - 400 K/uL 165 IMAGING: CT images viewed showing significant inflammation and dilation of the appendix consistent with appendicitis. IMPRESSION and PLAN: 67 y/o male with acute appendicitis Laparoscopic appendectomy. The risks, benefits, and alternative were discussed with the patient, his and daughter, and consent was freely obtained. NPO IVF Pain control IV antibiotics HOSPITAL COURSE (focused): The patient was admitted with acute appendicitis. He was taken to the operating room for laparoscopic appendectomy. Postoperatively, he progressed well, and is stable for discharge home. Operations & Procedures: 10/02/22 - laparoscopic appendectomy Complications: none significant SIGNIFICANT RESULTS: Vital Signs (last recorded): Most Recent Systolic BP: 122 mmHg (10/03/22730) Most Recent Diastolic BP: 74 mmHg (10/03/22730) Pulse: 44 (10/03/22730) Resp: 16 (10/03/22730) Most Recent Temperature: 36.22 C (10/03/22730) Weight: 105.2 kg (232 lb) (10/02/22317) SpO2: 95 % (10/03/22730) O2 flow rate: 2 L/MIN (10/02/22 1200) Labs: CHEMISTRY: BUN, Creatinine, GFR Estimated, Sodium, Potassium, Chloride, Carbon Dioxide, Glucose, Calcium (see below for most recent value): Lab Results Component Value Date/Time BUN 15 10/02/2022 04:37 AM BUN 16 01/19/2014 04:23 PM CREAT 1.0 10/02/2022 04:37 AM CREAT 0.9 01/19/2014 04:23 PM GFRESTIMATED >60.0 01/19/2014 04:23 PM NA 139 10/02/2022 04:37 AM NA 142 01/19/2014 04:23 PM POTASSIUM 3.7 10/02/2022 04:37 AM POTASSIUM 3.6 01/19/2014 04:23 PM CL 107 10/02/2022 04:37 AM CL 104 01/19/2014 04:23 PM CO2 25 10/02/2022 04:37 AM CO2 26 01/19/2014 04:23 PM CA 8.1 (L) 10/02/2022 04:37 AM CA 9.2 01/19/2014 04:23 PM COAGS: PT, INR (see below for three most recent values): No results found for: PATINR, INR BLOOD COUNT: WBC, Hgb, Platelets (see below for most recent value): Lab Results Component Value Date/Time WBC 18.12 (H) 10/02/2022 04:37 AM WBC 7.66 05/29/2012 03:39 PM HGB 12.1 (L) 10/02/2022 04:37 AM HGB 13.2 (L) 05/29/2012 03:39 PM PLT 165 10/02/2022 04:37 AM PLT 237 05/29/2012 03:39 PM LIVER FUNCTION TEST: Albumin, AST, ASTCMC (resulted at [facility] lab), Alkaline Phosphatase, ALT, ALTCMC (resulted at [facility] lab), Bilirubin Total, TBilCMC (resulted at [facility] lab), Protein - (see below for most recent value of each component): Lab Results Component Value Date/Time AST 21 10/01/2022 09:12 PM AST 25 01/24/2009 04:30 PM ALKP 74 10/01/2022 09:12 PM ALT 14 10/01/2022 09:12 PM ALT 17 01/24/2009 04:30 PM TBIL 1.5 (H) 10/01/2022 09:12 PM PROT 6.7 10/01/2022 09:12 PM Imaging (focused): CT ABD/PELVIS W IV CONTRAST - WO ORAL CONTRAST Final Result Addendum (preliminary) 1 of 1 THIS REPORT CONTAINS FINDINGS THAT MAY BE CRITICAL TO PATIENT CARE. The findings were verbally communicated via telephone conference with ERA BAPTISTE at 2:05 AM EDT on 10/02/2022. The findings were acknowledged and understood. THIS DOCUMENT HAS BEEN ELECTRONICALLY SIGNED BY GILES MORA MD Final PROCEDURE INFORMATION: Exam: CT Abdomen And Pelvis With Contrast Exam date and time: 10/02/2022 12:48 AM Age: 67 years old Clinical indication: Abdominal pain; Additional info: Rlq pain, leukocytosis, fever TECHNIQUE: Imaging protocol: Computed tomography of the abdomen and pelvis with contrast. Radiation optimization: All CT scans at this facility use at least one of these dose optimization techniques: automated exposure control; mA and/or kV adjustment per patient size (includes targeted exams where dose is matched to clinical indication); or iterative reconstruction. Contrast material: [id number]; Contrast volume: 100 ml; Contrast route: INTRAVENOUS (IV); REPORTING DATA: Count of CT and Cardiac NM exams in prior 12 months: This patient has received 0 known CTs and 0 known cardiac nuclear medicine studies in the 12 months prior to the current study. COMPARISON: MR [facility] L[facility] EXTREMITY 12/01/2018 4:28 PM FINDINGS: Lungs: Bibasilar atelectasis. Liver: Normal. No mass. Gallbladder and bile ducts: Cholelithiasis. No gallbladder wall thickening or pericholecystic fluid. No bile duct obstruction. Pancreas: Normal. No ductal dilation. Spleen: Normal. No splenomegaly. Adrenal glands: Normal. No mass. Kidneys and ureters: Nonobstructing left renal calculus measuring 3.5 mm. Stomach and bowel: Unremarkable. No obstruction. No mucosal thickening. Appendix: Appendix is dilated and edematous with surrounding inflammation measuring up to 1.5 cm. No adjacent abscess. Intraperitoneal space: Unremarkable. No free air. No significant fluid collection. Vasculature: Unremarkable. No abdominal aortic aneurysm. Lymph nodes: Unremarkable. No enlarged lymph nodes. Urinary bladder: Unremarkable as visualized. Reproductive: Unremarkable as visualized. Bones/joints: Unremarkable. No acute fracture. Soft tissues: Unremarkable. IMPRESSION IMPRESSION: 1. Acute appendicitis without abscess or free air. 2. Cholelithiasis. 3. Non-obstructing left renal calculus. 4. Bibasilar atelectasis. THIS DOCUMENT HAS BEEN ELECTRONICALLY SIGNED BY GILES MORA MD CONSULTS ORDERED: None REFERRING PHYSICIAN: Ref: [id number]] NO STREET ADDRESS AVAILABLE None (office) None (fax) PRIMARY CARE PROVIDER: PCP: Shane Zhu DO [address] [facility] [address] (office) [phone] (fax) Note: To contact a physician responsible for this patients hospital care, please call [facility] [phone]. documented in this encounter Discharge Instructions * Discharge Instr - AVS* Meredith Lara DO - 10/03/2022 9:52 AM EDT Discharge Date: 10/03/2022 Check your Patient Education Brochure for further information. You may call Dr. Lara of the department of General Surgery at [phone] for any questions, test results or after-hours emergencies. The information below provides you with the instructions and the list of medications you need to betaking following discharge from the hospital. If you have any questions, please ask before leaving.Please carry this letter with you when you see your doctor in the clinic. If you have questions, you can reach us at the numbers above. Brief summary of your inpatient care: You were admitted with acute appendicitis. You underwent laparoscopic appendectomy. Post operatively, you progressed well, and are stable for discharge home. Your primary diagnosis at discharge was acute appendicitis. Urgent Appendectomy Please follow these instructions carefully: Activity: As tolerated. No lifting, pushing, or pulling greater than 10 pounds. You may climb stairs. You may resume sexual activity. No driving for 1 week or while taking prescription pain medication. Diet: Resume your normal diet tomorrow unless otherwise instructed. Pain Control: Take pain medications as instructed on Active Medication List. Example: Tylenol or Ibuprofen You may take oxycodone as needed for severe pain. Incisions: Your incisions are covered with surgical glue. Wash incisions with soap and water and keep dry. The Surgical glue will fall off on own. You may shower but avoid tub bathing/swimming for 7 days. Constipation: It is normal not to have a bowel movement for up to 3 days after surgery due to anesthesia. To prevent constipation, drink plenty of liquids and eat plenty of fiber which includes fruits and vegetables. Follow Up Appointment: If one has not already been made for you, call the surgeon's office at the number listed above whenyou get home to schedule a follow-up appointment for 7- 10 days. Call the surgeon with any of the following symptoms: Fever higher than 101 degrees Fahrenheit. Severe pain not relieved by pain medication. Inability to urinate. Excessive bleeding, swelling, redness, or drainage from any of the incisions. Date you may return to work or school: 10/31/22 Follow up appointment with Surgeon as previously scheduled or in 2 week(s). Inpatient test results pending: surgical pathology Operations & Procedures: Laparoscopic appendectomy Complications: none significant Advance Directive Documented: Advance Directive Does the Patient have an Advance Directive? No documented in this encounter Progress Notes * Cale Newsome RN - 10/02/2022 4:11 AM EDT ..Dual Licensed Skin Assessment completed by Cale Newsome and Micaela Knight. The patient is/has a N/A Skin Breakdown (includes non blanchable erythema): No Pt had dry rash on lower abdomen documented in this encounter H&P Notes * Meredith Lara DO - 10/02/2022 7:40 AM EDT HISTORY AND PHYSICAL EXAMINATION - General Surgery [facility]-[address] [address] Name: Josue Page Location: [facility] [id number] Date: 10/02/2022 Time: 7:40 AM PRESENTING PROBLEM: Abdominal pain HISTORY OF PRESENT ILLNESS: Josue Page is a 67 year old, male who presented to the ED with RLQ abdominal pain which began suddenly in the afternoon 2 days ago. Associated with fevers and nausea. Pain is worse with coughing and moving. Surgical history significant for left inguinal hernia repair. He is a nonsmoker. HOSPITAL PROBLEM LIST: Active Problems: * No active hospital problems. * POA = Present On Admission PAST MEDICAL HISTORY: Past Medical History: Diagnosis Date Benign neoplasm of colon 03/09/09 adenomatous/acute rectal cryptitis/repeat colonoscopy in 3-5 yrs PAST SURGICAL HISTORY: Past Surgical History: Procedure Laterality Date COLONOSCOPY THRU STOMA, W/BIOPSY 03/09/09 adenomatous/acute rectal cryptitis/repeat colonoscopy in 3-5 yrs COLONOSCOPY, DIAGNOSTIC (RECTUM) 02/15/2014 normal, repeat in 5 yrs/COLONOSCOPY FLEXIBLE PROXIMAL DIAGNOSTIC performed by Gabino Benoit MD at [facility] COLONOSCOPY, DIAGNOSTIC (RECTUM) N/A 04/10/2019 diverticulois sigmoid colon/recall 5 years/COLONOSCOPY FLEXIBLE PROXIMAL DIAGNOSTIC performed by Xenia Greco DO at OR [facility] REPAIR INITIAL INGUINAL HERNIA REDUCIBLE AGE 5 OR MORE 1992 R IHR FAMILY HISTORY: Family History Problem Relation Age of Onset Cancer Mother type unknown- age 39 Diabetes Father No Past Hx Sister No Past Hx Brother No Past Hx None No FH early CAD, no colon or prostate cancer SOCIAL HISTORY: Social History Tobacco Use Smoking status: Never Smokeless tobacco: Never Substance Use Topics Alcohol use: No Drug use: No CURRENT HOSPITAL MEDICATIONS: Note that completed medications (per the MAR) continue to display for 24 hours. Ordered medicationsto be given in the future also display. Current Facility-Administered Medications Medication Dose Route Frequency Provider Acetaminophen (Tylenol) tab 975 mg 975 mg Oral Q6H PRN Meredith Gretschel, DO Docusate Sodium (Colace) cap 100 mg 100 mg Oral BID(AM/PM) Meredith Gretschel, DO HYDROmorphone (Dilaudid) inj 0.5 mg 0.5 mg IV Push Q3H PRN Meredith Gretschel, DO isolyte-S pH 7.4 infusion Intravenous Continuous Meredith Gretschel, DO naloxone (Narcan) 0.4 MG/ML inj 0.08 mg 0.08 mg IV Push PRN Meredith Gretschel, DO ondansetron ODT (Zofran) tab 4 mg 4 mg On Tongue Q6H PRN Meredith Gretschel, DO Or ondansetron (Zofran) inj 4 mg 4 mg IV Push Q6H PRN Meredith Gretschel, DO oxyCODONE (Oxy IR) tab 10 mg 10 mg Oral Q4H PRN Meredith Gretschel, DO oxyCODONE (Oxy IR) tab 5 mg 5 mg Oral Q4H PRN Meredith Gretschel, DO piperacillin-tazobactam (ZOSYN) 4.5 g in D5W 100 mL (FOUR hour infusion) 4.5 g IV Piggyback Q8HNow Meredith Gretschel, DO ALLERGIES: Cold & cough [dbmczyxws-xqrkndqg-rv] ROS: Constitutional: (+) fever and (-) otherwise negative Abdominal/GI: (+) nausea, (+) abdominal pain and (-) otherwise negative All other systems reviewed and negative except as described in the HPI. PHYSICAL EXAMINATION: Most Recent Vital Signs: BP: 125 mmHg/69 mmHg (10/02/22 0735) Pulse: 71 (10/02/22 0735) Temp: 37.61 C (10/02/22 0735) Resp: 16 (10/02/22 0735) SpO2: 94 % (10/02/22 0735) Constitutional: no acute distress HEENT: normal: normocephalic, atraumatic; no masses, tenderness, or adenopathy Eyes: sclera and conjunctiva normal Neck: supple, normal range of motion CV: normal rate, normal rhythm Chest: normal respiratory effort Abdomen: soft, RLQ tenderness, mildly distended , no rebound or guarding Extremities: no clubbing, cyanosis, or edema, otherwise grossly normal, warm, and dry Skin: warm, dry, intact: Neuro: alert, oriented to person, place, and time Psych: normal mood and affect, judgement normal LABS: Labs reviewed as indicated below: Latest Reference Range & Units 10/02/22 04:37 Sodium 135 - 146 mmol/L 139 Potassium 3.5 - 5.1 mmol/L 3.7 Chloride 98 - 107 mmol/L 107 CO2 22 - 32 mmol/L 25 BUN 6 - 20 mg/dL 15 Creatinine 0.6 - 1.2 mg/dL 1.0 Estimated Glomerular Filtration Rate >=60 mL/min 80 Anion Gap 7 - 15 mmol/L 7 Glucose 70 - 120 mg/dL 97 Calcium 8.4 - 10.2 mg/dL 8.1 (L) CBC Rpt ! WBC 4.00 - 10.80 K/uL 18.12 (H) HGB 14.0 - 16.8 g/dL 12.1 (L) HCT 40.0 - 48.4 % 36.8 (L) MCV 82.0 - 99.5 fL 93.4 PLT 140 - 400 K/uL 165 IMAGING: CT images viewed showing significant inflammation and dilation of the appendix consistent with appendicitis. IMPRESSION and PLAN: 67 y/o male with acute appendicitis Laparoscopic appendectomy. The risks, benefits, and alternative were discussed with the patient, his and daughter, and consent was freely obtained. NPO IVF Pain control IV antibiotics REFERRING PHYSICIAN: 1. Self PRIMARY CARE PHYSICIAN: Shane Zhu DO documented in this encounter Nursing Notes * Donya Evans RN - 10/03/2022 11:58 AM EDT NURSING DISCHARGE PROGRESS NOTE [facility] [place] [facility] [address] [place] [address] Name: Josue Page Location: [facility]-5116/W Date: 10/03/2022 Time: 11:58 AM FUNCTIONAL INDEPENDENCE MEASURE (must be completed for all patients on discharge): Feedin = Complete independence Locomotion: 4 = Complete independence Expression: 4 = Complete independence Transfer Mobility: 4 = Complete independence Social Interaction: 4 = Complete independence Destination: Home OXYGENATION: Discharged with O2: No PATIENT DEVICES: None Pt and family present for discharge instructions- verbalized understanding of teaching. Pt and family gathered all belongings and had them with them upon discharge. Pt ambulated to exit with this RN. * Adam Lai RN - 10/02/2022 12:44 PM EDT Post Anesthesia Care Unit Discharge Note [address] [address] Dept. Josue Page Vital Signs Stable Discharged from PACU as per discharge criteria (see discharge criteria sheet). Time: 1225 Taken to Inpatient Room , accompanied by Reyna Lai RN. Transported via: Bed Belongings with Patient: YES, Ring, Underwear Prescriptions on Chart: N/A Patient meets criteria to be transferred or discharged * Cale Newsome RN - 10/02/2022 3:33 AM EDT Pt resting comfortably in bed, admission questions completed, on room air. documented in this encounter OR Notes * OR Surgeon - Meredith Lara DO - 10/02/2022 11:26 AM EDT [address] [id number] OPERATIVE REPORT Name: Josue Page Date: 10/02/2022 Time: 11:26 AM Location: [facility] Service: General Surgery Date of Operation: 10/02/2022 Pre-op Diagnosis: Acute appendicitis Post-op Diagnosis: Same, with contained perforation Operation: Laparoscopic appendectomy Surgeon: Meredith Lara DO Assistants: None Anesthesia: General endotracheal anesthesia 30 ml of Local anesthesia: 0.25% bupivacaine infiltrated in the incision Drains: none Estimated Blood Loss: 10 ml. IV Fluids: 800 ml. Urine Output: 300 ml. Specimens/Disposition: Appendix to pathology Apparent Intraoperative Complications: NONE Patient Condition: stable Disposition: Post Anesthesia Care Unit Description of Operation: The patient was seen in the Holding Room and the site of surgery properly noted/marked. The patientwas taken to the OR room #3, identified as Josue Page and the procedure verified as laparoscopic, potential open appendectomy. A Time Out was held and the above information confirmed. Prior to the induction of general anesthesia, perioperative thromboprophylaxis and antibiotic prophylaxis were utilized. General endotracheal anesthesia was then administered and tolerated well. A mora catheter was placed under sterile conditions. After the induction, the abdomen was prepped widely and draped as a sterile field. After infiltration of local anesthesia, a small supraumbilical incision was made. A Veress needle was used to obtain intra-abdominal access, and the abdomen was insufflated to a pressure of 15 mm Hg.A laparoscopic survey was performed. There was no obvious intra-abdominal pathology recognized other than the acute appendicitis. There was no injury to the underlying viscera. Pneumoperitoneum was then created and tolerated well. Additional 5 mm trocars was introduced under direct vision in the suprapubic area and a 12 mm trocar in the left lower abdomen. All skin incisions and peritoneum were infiltrated with a local anesthetic agent before making the incision. Using graspers, the appendix was visualized, grasped, and freed from attachments. It was adhered tothe lateral abdominal wall and these adhesions were lysed using the Harmonic. The appendix was noted to be grossly inflamed with a perforation in 2 points. The base of the appendix appeared healthy. A defect was made in the mesentery. An Endo DESMOND 45 mm blue load stapler was introduced. With the appendix grasped, the appendix was transected at its base with the 45 mm blue load stapler. There was no evidence of leak and the staple line was intact. Attention was then turned toward dissection and transection of the mesentery. This was performed with the Harmonic energy device. An EndoCatch bag was introduced through the LLQ port, and the appendix was removed. The LLQ port site fascia was closed with 0 vicryl suture using the Brian Daksha suture passer. The ports were then removed under direct visualization. Pneumoperitoneum was evacuated. The ports were then closed with 4-0 Monocryl sutures. The skin was cleansed. Dermabond was applied. The instrument, sponge, and needle count were reported to us as being correct x2 by the perioperative nursing staff. The patient tolerated the procedure well. The mora catheter was removed. He was successfully extubated in the OR and transferred to the PACU in stable condition. Attestation: I performed the procedure CC: Shane Zhu DO Self documented in this encounter ED Notes * Micky Wright MD - 10/01/2022 11:16 PM EDT HISTORY OF PRESENT ILLNESS Josue Page is a 67 year old male who presents to the ED for evaluation of Abdominal Pain. The patient was seen at 10/01/22 2315. 67 year old male with PMH significant for stage I prostate cancer presents to the emergency department complaining of right lower quadrant pain and fever for 1 day. Context: Patient retains his appendix. Location is right lower quadrant pain. Quality is aching and cramping. Pain is a 5/10. Aggravating factors include movement, palpation, riding in the car, walking. Alleviating factors include remaining still. Treatment rendered prior to arrival in ER: Patient received Tylenol while in triage at 6:00 p.m.. Timing is constant Review of Systems Constitutional: Positive for chills, diaphoresis, fatigue and fever. Respiratory: Negative for cough and shortness of breath. Cardiovascular: Negative for chest pain and palpitations. Gastrointestinal: Positive for abdominal pain and nausea. Negative for diarrhea and vomiting. Genitourinary: Negative for difficulty urinating, dysuria, flank pain, frequency, hematuria and urgency. Skin: Negative for color change, pallor and rash. Neurological: Negative for dizziness, light-headedness and headaches. All other systems reviewed and are negative. The patient's allergies, past history, and medications were reviewed. PHYSICAL EXAM Initial Vitals (see all): BP 135/66 | Pulse 79 | Resp 18 | Temp 100.8 | O2 95 %Weight 104.33 kg | Height 182.9 cm | BMI 31.19kg/m2 Initial Pain Assessment (see all): 5 (moderate pain)/10 ([facility] Adult Scale 0-10) Physical Exam Vitals and nursing note reviewed. Constitutional: General: He is awake. He is not in acute distress. Appearance: Normal appearance. He is well-developed and well-groomed. He is ill- appearing. He is not toxic-appearing or diaphoretic. HENT: Head: Normocephalic and atraumatic. Jaw: There is normal jaw occlusion. Mouth/Throat: Lips: [place]. Mouth: Mucous membranes are moist. Pharynx: Oropharynx is clear. Uvula midline. Cardiovascular: Rate and Rhythm: Normal rate and regular rhythm. Heart sounds: Normal heart sounds. Pulmonary: Effort: Pulmonary effort is normal. Breath sounds: Normal breath sounds and air entry. Abdominal: General: Bowel sounds are normal. Palpations: Abdomen is soft. Tenderness: There is abdominal tenderness in the right lower quadrant. There is guarding. There is no rebound. Positive signs include McBurney's sign. Negative signs include Ritter's sign, Rovsing's sign and psoas sign. Musculoskeletal: Right hip: Normal. Left hip: Normal. Skin: General: Skin is warm and dry. Capillary Refill: Capillary refill takes less than 2 seconds. Neurological: Mental Status: He is alert and oriented to person, place, and time. Psychiatric: Behavior: Behavior is cooperative. PROCEDURES AND TREATMENTS ED Orders | ED Results MEDICAL DECISION MAKING Nursing notes and vital signs were reviewed. ED Course as of 10/02/22 0150 Mon Oct 01, 2022 2331 Older male with RLQ pain and lowgrade fever, has wbc 19K, appendicitis must be excluded, advanced imaging pending, kidney stone is also a possibility, we do not yet have UA available. [RO] e Oct 02, [address] scan reviewed by myself and attending. Concerning for appendicitis. Attending has advised that I reach out to surgeon to discuss care. [JT] 0116 Case discussed with surgery [JT] 0148 Admitted to surgery service. [JT] ED Course User Index [JT] Era Baptiste PA-C [RO] Micky Wright MD Differential Diagnoses Based on my history, physical exam, and evaluation, the differential includes, but is not limited, to the following diagnoses: UTI, pyelonephritis, kidney stone, appendicitis, sepsis. Imaging results reviewed, reports are as follows: I have reviewed the clinical lab, radiology, and other medical tests that were ordered during this encounter (see all). Lab results reviewed: I have reviewed the clinical lab, radiology, and other medical tests that were ordered during this encounter (see all). ED COURSE: History and physical were obtained. Prior records, EMS notes, triage/nursing notes reviewed as available. Patient was evaluated as per above. REASSESSMENT: Blood pressure 124/69, pulse 67, temperature (!) 38.2 C (100.8 F), temperature source Oral, resp. rate 18, height 1.829 m (6'), weight 104.3 kg (230 lb), SpO2 95 %. The patient is clinically appropriate for admission. I have reviewed the differential diagnosis along with disposition and treatment options at great length with the patient/family. They are in full agreement with the plan to admit the patient. Rationale I discussed the differential diagnosis with the patient an/or family along with options for further testing and/or treatment. They agree with the planned workup and the plan MEDICAL DECISION MAKING: History and physical were obtained. Based on the patients age, coexisting illnesses, labs, imaging,and exam findings the decision to treat as an inpatient was made. I discussed my findings with the patient, family and they understand and agree with the treatment plan. All questions answered. DIAGNOSIS: Acute appendicitis, unspecified acute appendicitis type DISPOSITION: Admitted to General Surgery Admission Order Ordered Status . 10/02/22 0143 Assign to SORU (23 hr Surgical Overnight) ONCE Ordered Patient seen and examined in conjunction with supervising (cosigning) physician who also interviewed/examined the patient and agrees: MD Era Lima PA-C Supervisory Addendum-PA I participated in the following activities of this patients care: the medical history, the physicalexam, medical decision making. Results interpretation: I agree with the study interpretation in this patient's care. Notes: Patient personally interviewed and examined and care coordinated in conjunction with Physician Councilor. I agree with the assessment, treatment plan and disposition of the patient as recordedby the Physician Councilor. My independent Hx/Exam/MDM includes the following: See my supervising attending physician attestation in the ED course section above. * Celina Ly RN - 10/01/2022 8:59 PM EDT Pt presents to the ED with c/o RLQ abdominal pain that started yesterday. Denies radiations of pain. Pt states that he has some nausea and had a fever of 100F at home. Pt states that he does still have his appendix, states that he does have stage 1 prostate cancer as well. Denies vomiting or diarrhea, or urinary symptoms. documented in this encounter Miscellaneous Notes * Communication - Rukhsana Pennington RN - 10/03/2022 11:10 AM EDT Appointment: You have a hospital follow up appointment with October 05, 2022 at 2:[address] [place] [address] You have a hospital follow up appointment with Dr. Lara October 17, 2022 at 11:45 am. (General Surgery) [phone] * Pt Handout (on AVS) - Rukhsana Pennington RN - 10/03/2022 11:09 AM EDT Images from the original note were not included. Prepared for: Josue Page [phone] Oxycodone Oral Tablet 5 mg Uses For pain. Instructions Some brands of this medicine should be swallowed whole while other brands may be crushed. Ask your pharmacist how you should take your medicine. This medicine may be taken with or without food. Swallow with a full glass (8 oz) of water unless your doctor gives you different instructions. Store at room temperature away from heat, light, and moisture. Do not keep in the bathroom. Please ask your doctor, nurse, or pharmacist how to discard unused medicines safely. To reduce constipation, eat high fiber foods, drink plenty of water and exercise. Avoid grapefruit juice while on this medicine. Drug interactions can change how medicines work or increase risk for side effects. Tell your healthcare providers about all medicines taken. Include prescription and idad-vtu-kaxdmcm medicines, vitamins, and herbal medicines. Speak with your doctor or pharmacist before starting or stopping any medicine. Tell your doctor if symptoms do not get better or if they get worse. Parts of this medicine may come out in the stool. This is normal. Cautions This medicine has an opioid. Opioids help many people but may cause addiction, especially if used for a long time. The addiction risk is higher if you have a substance use disorder (overuse of or addiction to drugs or alcohol). Ask your doctor about the benefits and risks. Ask your doctor or pharmacist if you should have naloxone on hand to treat opioid overdose. Teach your family or household members about the signs of an opioid overdose and how to treat it. If you stop this medicine suddenly after using it for a long time, you may have withdrawal. Your doctor may slowly lower your dose before stopping it. Tell your doctor right away if you have symptoms, such as unusual sweating, watering eyes, runny nose, chills, diarrhea, yawning, muscle aches, restlessness, anxiety, trouble sleeping, or thoughts of suicide. Tell your doctor and pharmacist if you ever had an allergic reaction to a medicine. Do not use the medication any more than instructed. This medicine may cause dizziness or fainting, especially after exercising or in hot weather. Be very careful when standing or sitting up quickly. If possible, avoid using with alcohol, marijuana, or other medicines that can cause dizziness or drowsiness. These include allergy/cold products, muscle relaxers, sleep aids, and pain relievers. Your ability to stay alert or to react quickly may be impaired by this medicine. Do not drive or operate machinery until you know how this medicine will affect you. This medicine passes into breast milk. Ask your doctor before . This medicine can hurt a new baby in the womb. If you become while on this medicine, tell your doctor immediately. Your doctor may switch you to a different medicine. This medicine should be used with caution in patients with breathing difficulties. Call your doctor right away if you notice slow or shallow breathing. Do not share this medicine with anyone who has not been prescribed this medicine. Some patients have serious side effects from this medicine. Ask your pharmacist to show you the information from the Food and Drug Administration (FDA) and discuss it with you. Side Effects The following is a list of some common side effects from this medicine. Please speak with your doctor about what you should do if you experience these or other side effects. decreased appetite constipation dizziness or drowsiness lightheadedness nausea and vomiting Call your doctor or get medical help right away if you notice any of these more serious side effects: agitated feeling or trouble sleeping decreased awareness or responsiveness breathing interruption during sleep shallow, irregular breathing confusion fainting hallucinations (unusual thoughts, seeing or hearing things that are not real) seizures severe stomach or bowel pain unusual or unexplained tiredness or weakness difficulty or discomfort urinating weight loss A few people may have an allergic reaction to this medicine. Symptoms can include difficulty breathing, skin rash, itching, swelling, or severe dizziness. If you notice any of these symptoms, seek medical help quickly. Extra Please speak with your doctor, nurse, or pharmacist if you have any questions about this medicine. [email or web address].Clever Sense/[email or web address]/fdbpem/5278 IMPORTANT NOTE: This document tells you briefly how to take your medicine, but it does not tell youall there is to know about it. Your doctor or pharmacist may give you other documents about your medicine. Please talk to them if you have any questions. Always follow their advice. There is a more complete description of this medicine available in [place]ian. Scan this code on your smartphone or tablet or use the web address below. You can also ask your pharmacist for a printout. If you have any questions, please ask your pharmacist. The display and use of this drug information is subject to Terms of Use. Copyright(c) 2022 [employer]. The [employer]. All rights reserved. This information is not intended as a substitute for professional medical care. Always follow your healthcare professional's instructions. * Pt Handout (on AVS) - Rukhsana Pennington RN - 10/03/2022 11:09 AM EDT Images from the original note were not included. Prepared for: Josue Page [id number] Docusate Oral Capsule Brands: Colace, Doculase, DOK, Kaopectate Stool Softener, Ness Stool Softener, Surfak Stool Softener Uses For bowel movement. Instructions Take the medicine with 250 mL (1 cup) of water. Keep the medicine at room temperature. Avoid heat and direct light. To reduce constipation, eat high fiber foods, drink plenty of water and exercise. If you forget to take a dose on time, take it as soon as you remember. If it is almost time for thenext dose, do not take the missed dose. Return to your normal schedule. Do not take 2 doses at one time. Tell your doctor and pharmacist about all your medicines. Include prescription and hntx-aya-yxvuvjgujjwztcow, vitamins, and herbal medicines. Tell your doctor if symptoms do not get better or if they get worse. Cautions Tell your doctor and pharmacist if you ever had an allergic reaction to a medicine. Do not use the medication any more than instructed. Tell the doctor or pharmacist if you are , planning to be , or . Side Effects The following is a list of some common side effects from this medicine. Please speak with your doctor about what you should do if you experience these or other side effects. abdominal cramps diarrhea stomach upset or abdominal pain Call your doctor or get medical help right away if you notice any of these more serious side effects: blood in stool A few people may have an allergic reaction to this medicine. Symptoms can include difficulty breathing, skin rash, itching, swelling, or severe dizziness. If you notice any of these symptoms, seek medical help quickly. Extra Please speak with your doctor, nurse, or pharmacist if you have any questions about this medicine. [email or web address] IMPORTANT NOTE: This document tells you briefly how to take your medicine, but it does not tell youall there is to know about it. Your doctor or pharmacist may give you other documents about your medicine. Please talk to them if you have any questions. Always follow their advice. There is a more complete description of this medicine available in [place]. Scan this code on your smartphone or tablet or use the web address below. You can also ask your pharmacist for a printout. If you have any questions, please ask your pharmacist. The display and use of this drug information is subject to Terms of Use. Copyright(c) 2022 [employer]. [employer]. All rights reserved. This information is not intended as a substitute for professional medical care. Always follow your healthcare professional's instructions. * Pt Handout (on AVS) - Rukhsana Pennington RN - 10/03/2022 11:09 AM EDT Prepared for: Josue Page 4735-9 Acetaminophen Oral Tablet 325 mg Brands: Cetafen, Mapap, Pharbetol, Ringl, Tactinal, Tycolene, Tylenol Uses This medicine is used for the following purposes: fever pain Instructions This medicine may be taken with or without food. Store at room temperature away from heat, light, and moisture. Do not keep in the bathroom. Drug interactions can change how medicines work or increase risk for side effects. Tell your healthcare providers about all medicines taken. Include prescription and mtxg-vbc-fkshqjp medicines, vitamins, and herbal medicines. Speak with your doctor or pharmacist before starting or stopping any medicine. Tell your doctor if symptoms do not get better or if they get worse. You may stop using this medicine if you no longer have symptoms. Do not take more than 12 pills in a day. Cautions Tell your doctor and pharmacist if you ever had an allergic reaction to a medicine. Do not use the medication any more than instructed. Do not drink beverages with alcohol while on this medicine. Tell the doctor or pharmacist if you are , planning to be , or . This medicine contains acetaminophen. There are many medicines with acetaminophen. Taking these medicines together can cause you to get too much acetaminophen. This can cause serious liver problems. Look carefully on the package of all your medicines to see if acetaminophen is included. Ask your pha rmacist which medicines you can take safely. Side Effects If you have any of the following side effects, you may be getting too much medicine. Please contactyour doctor to let them know about these side effects. signs of liver damage (such as yellowing of eye or skin, dark urine, or unusual tiredness) Call your doctor or get medical help right away if you notice any of these more serious side effects: red, burning, or itchy skin This medicine usually has no side effects. A few people may have an allergic reaction to this medicine. Symptoms can include difficulty breathing, skin rash, itching, swelling, or severe dizziness. If you notice any of these symptoms, seek medical help quickly. Extra Please speak with your doctor, nurse, or pharmacist if you have any questions about this medicine. [email or web address].[email or web address]/[email or web address]/fdbpem/9 IMPORTANT NOTE: This document tells you briefly how to take your medicine, but it does not tell youall there is to know about it. Your doctor or pharmacist may give you other documents about your medicine. Please talk to them if you have any questions. Always follow their advice. There is a more complete description of this medicine available in [place]. Scan this code on your smartphone or tablet or use the web address below. You can also ask your pharmacist for a printout. If you have any questions, please ask your pharmacist. The display and use of this drug information is subject to Terms of Use. Copyright(c) 2022 [employer]. 9372-4345 The [employer]. All rights reserved. This information is not intended as a substitute for professional medical care. Always follow your healthcare professional's instructions. * Pt Handout (on AVS) - Rukhsana Pennington RN - 10/03/2022 11:09 AM EDT Images from the original note were not included. Prepared for: Josue Page [address] What Is Appendicitis? Appendicitis is an inflammation or infection of the appendix. It can cause pain and other problems that start quickly and get worse. Treatment should start right away to prevent serious problems. Your appendix The appendix is a small pouch about the size of your little finger. It hangs off the colon (large intestine). The purpose of the appendix is unclear. One theory is that the appendix may be a place tostore good bacteria in the gut. But if it gets blocked, it may get infected. Symptoms of appendicitis Symptoms tend to start quickly, often over 1 to 2 days. They can include: Pain that starts in the center of your belly and moves to your lower right side Worse pain and pressure on your side when you walk Stomach upset (nausea) and vomiting Low appetite Fever Tiredness Either diarrhea or constipation Treatment Antibiotic medicine. In some cases, your healthcare provider may advise treatment with antibiotics. This may be an option if the appendix has not ruptured and you don't have other problems or risks. Using antibiotics may help keep you from needing surgery. Surgery.Removing the appendix with surgery is common. This is called an appendectomy. This is often the best choice. It?s best to remove the appendix before it bursts. If the appendix bursts, it can cause severe health problems. Not having an appendix shouldn?t affect your long-term health. Last Reviewed Date: 01/13/202119996279-1105 [employer]. All rights reserved. This information is not intended as a substitute for professional medical care. Always follow your healthcare professional's instructions. * Pt Handout (on AVS) - Rukhsana Pennington RN - 10/03/2022 11:09 AM EDT Images from the original note were not included. Prepared for: Josue Page [phone] Surgery for Appendicitis Your side may hurt so much that you call your healthcare provider. Or maybe you go straight to the hospital emergency room. After your evaluation, your healthcare provider may decide that you have appendicitis. If so, you'll need surgery. Your provider will send you to a hospital room or take you right to the operating room. There your healthcare team will get you ready for surgery. Your experience You may have fluids and antibiotics through an IV (intravenous) line placed in your hand or arm. Tell your healthcare provider if you're allergic to any antibiotics or other medicines. Before surgery, an anesthesiologist or nurse feed project engineer will also talk with you. They'll give you medicine (general anesthesia) just before your appendectomy. This keeps you pain-free and lets you sleep during thesurgery. During surgery The goal of surgery is to remove your appendix safely. In most cases, the surgery lasts from 30 minutes to 1 hour. If your appendix has burst, bacteria will be released into the belly (abdominal) cavity. Then surgery may take longer. Your surgeon may use 1 of 2 methods to reach your appendix. Your surgeon will discuss which is best for you: Open surgery. Your surgeon makes 1 large cut (incision) in your lower right side. They make a bigger incision if your appendix has burst. Laparoscopic surgery. Your surgeon makes from 2 to 4 small incisions. One is near your belly button. The others are in other parts of your stomach. Your surgeon puts a thin tube with a camera attached (laparoscope) through one of the incisions. The camera shows the inside of your belly on a screen. This image helps guide the surgery. Your surgeon puts surgical tools into the other incisions. Sometimes if the appendix has burst and a pocket of infection has formed, this will be drained. Antibiotics are given for some time (perhaps weeks) before the appendix is removed. Finishing the surgery In most cases, the surgeon closes the entire incision with stitches or wander. Your surgeon may place a short-term (temporary) drain in the wound or in your belly. This helps cure or prevent infection. If your appendix burst, your surgeon may leave the outer layers of your incision open. Leaving the skin open prevents infection from forming under the skin. It may heal on its own. Or it may be closed about 5 days later. Recovery Most people recover quickly after an appendectomy. You'll likely be in the hospital for 1 to 2 days. If your appendix burst, you may stay longer. After you return home, plan on a follow-up visit to the healthcare provider in 1 to 2 weeks. In the hospital In most cases, you'll drink fluids and walk on the day of your surgery. You'll also be given pain medicine as needed. To help keep your lungs clear, a healthcare provider may teach you how to do cough and deep breathing exercises. Back at home To help control pain from surgery, take your medicines as directed. Don't do any strenuous activity, heavy lifting, or driving until your surgeon says it is OK. As instructed, slowly go back to your normal activities in 7 to 10 days. If you're constipated, take fiber or a stool softener. Risks and possible complications Risks and complications can include the following: Infection or bleeding from the incision site Infection or swelling in the belly, or stool leakage Delayed return of bowel or intestinal function (bowel ileus) or bowel blockage Problems from anesthesia Call your healthcare provider Call your healthcare provider right away if you have any of the following: Swelling, oozing, worsening pain, or abnormal redness around the incision Fever of 100.4F (38C) or higher, or as directed by your healthcare provider Belly pain that gets worse Severe diarrhea, bloating, or constipation Upset stomach (nausea) or vomiting Trouble breathing or shortness of breath Leg swelling Last Reviewed Date: 01/13/202119996236-2519 [employer]. All rights reserved. This information is not intended as a substitute for professional medical care. Always follow your healthcare professional's instructions. * Progress Notes - Post-Op Shona - Meredith Lara DO - 10/03/2022 9:47 AM EDT PROGRESS NOTE - General Surgery [facility] [address] Name: Josue Page Location: [facility] [id number] Date: 10/03/2022 Time: 9:47 AM DIAGNOSIS: Acute appendicitis PROCEDURE: Laparoscopic appendectomy SUBJECTIVE: Pt doing well. Tolerating diet, no N/V. Pain is controlled. +BM this AM. OBJECTIVE: Most Recent Vital Signs: BP: 122 mmHg/74 mmHg (10/03/22730) Pulse: 44 (10/03/22730) Temp: 36.22 C (10/03/22730) Resp: 16 (10/03/22730) SpO2: 95 % (10/03/22730) Vital Signs Last 24 Hours: Systolic BP: Most Recent Systolic BP Av mmHg Min: 114 mmHg Max: 140 mmHg Temperature: Most Recent Temperature Av.2 C Min: 35.89 C Max: 36.61 C Pulse: Pulse Av.7 Min: 44 Max: 69 Respirations: Resp Av.3 Min: 16 Max: 20 SpO2: SpO2 Av.6 % Min: 91 % Max: 97 % Intake/Output Summary (Last 24 hours) at 10/03/2022 0948 Last data filed at 10/03/2022 0800 Gross per 24 hour Intake 1777.51 ml Output 1335 ml Net 442.51 ml Physical Exam: Constitutional: no acute distress Abdomen: soft, nondistended, no rebound or guarding, (+) appropriate incisional tenderness, incisions with dermabond intact, no erythema or drainage Neuro: alert, oriented to person, place, and time LABS: Labs reviewed as indicated below: n/a IMAGING: N/A IMPRESSION: 67 y/o male POD #1 laparoscopic appendectomy PLAN: Regular diet Pain control Stable for d/c home today * Care Plan - Cale Newsome RN - 10/03/2022 5:20 AM EDT Clinical Goal(s): Pt's diet will be advanced as tolerated during shift. (10/02/22 194) Possible barriers to meeting goal(s)/advancing plan of care: effects of anesthesia from OR procedure Stability of the patient: Moderately stable - low risk of patient condition declining or worsening Summary regarding today's goal(s): Met: pt's diet was advanced Recommendations: plan for discharge. * Care Plan - Tawnya Kulkarni RN - 10/02/2022 5:39 PM EDT Clinical Goal(s): Pt's pain will be well managed this shift (10/02/22 0741) Possible barriers to meeting goal(s)/advancing plan of care: Pt diagnosis: acute appendicitis; Pt received Lap appendectomy (3 stabs w/dermabond) Stability of the patient: Moderately stable - low risk of patient condition declining or worsening Summary regarding today's goal(s): Met: Pt's pain was well managed this shift Recommendations: Continue plan of care; Pt receiving scheduled Tylenol and received 5mg Oxy at 1635 BP 124/71 | Pulse 58 | Temp 36.2 C (97.2 F) | Resp 18 | Ht 1.829 m (6') | Wt 105.2 kg (232 lb) | SpO2 95% | BMI 31.46 kg/m | BSA 2.31 m * Medical Necessity - David Haines RN - 10/02/2022 8:09 AM EDT AdmissionCare Guideline: Abdominal Pain, Undiagnosed, Observation Based on the indications selected for the patient, the bed status of Admit to Observation was determined to be MET The following indications were selected as present at the time of evaluation of the patient: - Suspected condition requiring continued monitoring (eg, ectopic , appendicitis, bowel ischemia) Additional Information: CT scan concerning for appendicitis AdmissionCare documentation entered by: David Haines [facility] – [place], [place] [employer], 26th edition, Copyright ? 2021 [employer] All Rights Reserved. [id number]:09:30-04:00 * Care Plan - Micaela Knight RN - 10/02/2022 6:46 AM EDT Clinical Goal(s): pt will remain comfortable during shift. (10/02/22 0342) Possible barriers to meeting goal(s)/advancing plan of care: acute pain Stability of the patient: Moderately stable - low risk of patient condition declining or worsening Summary regarding today's goal(s): Met: Pt's pain was controlled and he appeared comfortable this shift. Recommendations: Frequent rounding and pain assessments * Communication - Jose Albarran RN - 10/02/2022 2:49 AM EDT Hand-Off - Nurse Communication Note Name: Josue Page Location: 14/X Date: 10/02/2022 Time: 2:49 AM Sending to: 5A Safety Concerns: None Allergies: Cold & cough [[id number]] Code Status: Full Code Discussion of adv directives occurred with - adult: Not Discussed due to patient's condition Does patient have living will: No Does patient have health care power of traffic law attorney: No Isolation: None none Isolation flowsheet: Special Needs: Special Needs comments: Attention to: RN Report from: Jose Albarran RN Phone extension: [phone] Patient arriving via: Stretcher Reason for SBAR handoff: Admission Situation/Background Admission date: 10/01/2022 Patient Service: General Surgery [[id number]] Attending Provider: Meredith Lara DO Admitting diagnosis: Acute appendicitis Chief Complaint: Abdominal Pain Problem list: Active Problems: * No active hospital problems. * Resolved Problems: * No resolved hospital problems. * Level of Care: Med Surg [3] Assessment Vital Signs: BP: 120/66 (10/02/22211) Temp: (!) 38.2 C (100.8 F) (10/01/222057) Pulse: 66 (10/02/22211) Resp: 18 (10/02/22211) SpO2: 95 % (10/01/222057) Weight: 104.3 kg (230 lb) (10/01/222057) Height: 182.9 cm (6') (10/01/222057) Fall Scale: Neurological: Aravind Coma Scale Eyes Open: Spontaneous (10/01/222057) Best Verbal Response: Verbally appropriate for age (10/01/222057) Best Motor Response: Obeys commands appropriate for age (10/01/222057) Coma Score: 15 (10/01/222057) Additional Neurological Information: none Respiratory: Additional Respiratory Information: none Cardiac: Additional Cardiac Information: none GI/: Additional GI/ Information: appendisitis Integumentary: Additional Integumentary Information: none Restraints: No orders of the defined types were placed in this encounter. Lines: Peripheral Line Anterior;Right Wrist 20 Gauge (Active) Number of days: 0 Labs: Labs This Encounter COMPREHENSIVE METABOLIC PANEL - Abnormal; Notable for the following components: Result Value Ref Range Glucose 122 70 - 120 mg/dL Bilirubin, Total 1.5 <=1.2 mg/dL All other components within normal limits URINALYSIS, REFLEX TO MICROSCOPIC - Abnormal; Notable for the following components: Protein, Urine 30 Negative mg/dL Urobilinogen, Urine 4.0 0.2, 1.0 mg/dL All other components within normal limits CBC - Abnormal; Notable for the following components: WBC 19.48 4.00 - 10.80 K/uL HGB 13.4 14.0 - 16.8 g/dL HCT 39.0 40.0 - 48.4 % All other components within normal limits DIFFERENTIAL, AUTOMATED - Abnormal; Notable for the following components: WBC 19.48 4.00 - 10.80 K/uL Neutrophils % 79.5 40.0 - 75.0 % Lymphocytes % 9.8 18.0 - 42.0 % Absolute Neutrophils 15.50 1.80 - 7.70 K/uL Absolute Monocytes 1.92 0.00 - 1.10 K/uL All other components within normal limits LIPASE - Normal LACTATE - Normal SARS-COV-2 (COVID-19), NAAT - Normal MICROSCOPIC EXAM, URINE - Normal CBC WITH WBC DIFFERENTIAL Narrative: The following orders were created for panel order CBC WITH WBC DIFFERENTIAL. Procedure Abnormality Status --------- ------ CBC[[id number]] Abnormal Final result DIFFERENTIAL, AUTOMATED[[id number]] Abnormal Final result Please view results for these tests on the individual orders. EXTRA LIGHT BLUE TOP CULTURE, BLOOD CULTURE, BLOOD Diet: Orders Placed This Encounter Procedures NPO Except Meds Additional Diet Information: NPO Intake and Output: No intake or output data in the 24 hours ending 10/02/22 0249 Patient Belongings and Home Medications Recommendations/Follow up Goals/Plan of Care: OR, discharge Consults not completed: none Anticipated tests/studies/procedures: OR Medication Reconcilliation completed for this Admission? No documented in this encounter Plan of Treatment Upcoming Encounters Date Type Specialty Care Team Description 10/11/2022 Office Visit Vascular Surgery Fredy Verma MD [address] [place] [address] 10/17/2022 Office Visit General Surgery Meredith Lara, [address] [place] [address] [address] Pending Results Name Type Priority Associated Diagnoses Date /Time CULTURE, BLOOD Lab Routine 10/02/2022 12:33 AM EDT CULTURE, BLOOD Lab Routine 10/02/2022 2:04 AM EDT SURGICAL PATHOLOGY Pathology Routine Acute appendicitis, unspecified acute appendicitis type 10/02/2022 11:10 AM EDT Scheduled Orders Name Type Priority Associated Diagnoses Orde r Schedule SURGICAL PATHOLOGY Pathology Routine Acute appendicitis, unspecified acute appendicitis type Release Upon Ordering for 1 Occurrences starting 10/02/2022, 1 completed Scheduled Procedures Name Priority Associated Diagnoses Date/Ti [...] - PCV) 2021 Influenza Vaccine (FLU shot) (Season Ended) 2022 Lipid Panel 01/07/2023 01/07/2018, 12/14, 12/26/2015, [...] Procedure Name Priority Date/Time Associated Diagnosis Comments APPENDECTOMY 10/02/2022 9:20 AM EDT Acute appendicitis, unspecified acute appendicitis type LAPAROSCOPIC APPENDECTOMY 10/02/2022 9:20 AM EDT Acute appendicitis, unspecified acute appendicitis type BASIC METABOLIC PANEL Routine 10/02/2022 4:37 AM EDT CBC Routine 10/02/2022 4:37 AM EDT CULTURE, BLOOD Routine 10/02/2022 2:[address] ABD/PELVIS W IV CONTRAST - WO ORAL CONTRAST STAT 10/02/2022 12:54 AM EDT CULTURE, BLOOD Routine 10/02/2022 12:33 AM EDT SARS-COV-2 (COVID-19), NAAT STAT 10/02/2022 12:14 AM EDT MICROSCOPIC EXAM, URINE STAT 10/01/2022 11:18 PM EDT URINALYSIS, REFLEX TO MICROSCOPIC STAT 10/01/2022 11:18 PM EDT EXTRA LIGHT BLUE TOP STAT 10/01/2022 9:12 PM EDT DIFFERENTIAL, AUTOMATED STAT 10/01/2022 9:12 PM EDT COMPREHENSIVE METABOLIC PANEL STAT 10/01/2022 9:12 PM EDT CBC WITH WBC DIFFERENTIAL STAT 10/01/2022 9:12 PM EDT LIPASE STAT 10/01/2022 9:12 PM EDT LACTATE Routine 10/01/2022 9:12 PM EDT CBC STAT 10/01/2022 9:12 PM EDT documented in this encounter Results * (ABNORMAL) CBC (10/02/2022 4:37 AM EDT) WBC 18.12(H) 4.00 - 10.80 K/uL 10/02/2022 5:[address] [facility] RBC 3.94 4.50 - 5.25 M/uL 10/02/2022 5:[address] [facility] HGB 12.1(L) 14.0 - 16.8 g/dL 10/02/2022 5:26 AM EDT LABORATORY GL HCT 36.8(L) 40.0 - 48.4 % 10/02/2022 5:[address] [facility] MCV 93.4 82.0 - 99.5 fL 10/02/2022 5:[address] [facility] MCH 30.7 27.0 - 34.0 pg 10/02/2022 5:[address] [facility] MCHC 32.9 32.0 - 36.0 g/dL 10/02/2022 5:[address] [facility] RDW 12.5 11.5 - 15.5 % 10/02/2022 5:[address] [facility] PLT 165 140 - 400 K/uL 10/02/2022 5:[address] [facility] MPV 9.6 6.6 - 11.1 fL 10/02/2022 5:[address] [facility] nRBCs 0 <=0 /100 WBCs 10/02/2022 5:[address] [facility] Blood Venous blood specimen / Unknown Venipuncture / Unknown 10/02/2022 4:37 AM EDT 10/02/2022 5:22 AM EDT Meredith Lara DO LAB BLOOD ORDERABLES LABORATORY [facility] [address] [place] [address] * (ABNORMAL) BASIC METABOLIC PANEL (10/02/2022 4:37 AM EDT) BUN 15 6 - 20 mg/dL 10/02/2022 5:44 AM EDT LABORATORY GL Creatinine 1.0 0.6 - 1.2 mg/dL 10/02/2022 5:[address] [facility] Estimated Glomerular Filtration Rate 80 >=60 mL/min 10/02/2022 5:44 AM EDT LABORATORY [facility] Comment:eGFR is calculated b ased on the CKD-EPI 2020 equation Sodium 139 135 - 146 mmol/L 10/02/2022 5:44 AM EDT LABORATORY [facility] Potassium 3.7 3.5 - 5.1 mmol/L 10/02/2022 5:44 AM EDT LABORATORY [facility] Chloride 107 98 - 107 mmol/L 10/02/2022 5:44 AM EDT LABORATORY [facility] CO2 25 22 - 32 mmol/L 10/02/2022 5:44 AM EDT LAB[facility]ATORY [facility] Anion Gap 7 7 - 15 mmol/L 10/02/2022 5:44 AM EDT LABORATORY [facility] Glucose 97 70 - 120 mg/dL 10/02/2022 5:44 AM EDT LABORATORY [facility] Calcium 8.1(L) 8.4 - 10.2 mg/dL 10/02/2022 5:44 AM EDT LABORATORY [facility] Blood Venous blood specimen / Unknown Venipuncture / Unknown 10/02/2022 4:37 AM EDT 10/02/2022 5:22 AM EDT Meredith Marco COUCH LAB BLOOD ORDERABLES Performing Organization Address City/State/[facility] Co de Phone Number LABORATORY GL [address] [place] [address] * CT ABD/PELVIS W IV CONTRAST - WO ORAL CONTRAST (10/02/2022 12:54 AM EDT) Anatomical Region Laterality Modality Body, Abdomen, Pelvis Computed T omography 10/02/2022 12:4 8 AM EDT Addenda Addendum by Giles Mora MD on 10/02/2022 2:05 AM EDT THIS REPORT CONTAINS FINDINGS THAT MAY BE CRITICAL TO PATIENT CARE. The findings were verbally communicated via telephone conference with ERA BAPTISTE at 2:05 AM EDT on 10/02/2022. The findings were acknowledged and understood. THIS DOCUMENT HAS BEEN ELECTRONICALLY SIGNED BY GILES MORA MD Impressions 10/02/2022 2:00 AM EDT IMPRESSION: 1. Acute appendicitis without abscess or free air. 2. Cholelithiasis. 3. Non-obstructing left renal calculus. 4. Bibasilar atelectasis. THIS DOCUMENT HAS BEEN ELECTRONICALLY SIGNED BY GILES MORA MD Narrative 10/02/2022 2:00 AM EDT PROCEDURE INFORMATION: Exam: CT Abdomen And Pelvis With Contrast Exam date and time: 10/02/2022 12:48 AM Age: 67 years old Clinical indication: Abdominal pain; Additional info: Rlq pain, leukocytosis, fever TECHNIQUE: Imaging protocol: Computed tomography of the abdomen and pelvis with contrast. Radiation optimization: All CT scans at this facility use at least one of these dose optimization techniques: automated exposure control; mA and/or kV adjustment per patient size (includes targeted exams where dose is matched to clinical indication); or iterative reconstruction. Contrast material: [id number]; Contrast volume: 100 ml; Contrast route: INTRAVENOUS (IV); REPORTING DATA: Count of CT and Cardiac NM exams in prior 12 months: This patient has received 0 known CTs and 0 known cardiac nuclear medicine studies in the 12 months prior to the current study. COMPARISON: [facility] [place] [place] 12/01/2018 4:28 PM FINDINGS: Lungs: Bibasilar atelectasis. Liver: Normal. No mass. Gallbladder and bile ducts: Cholelithiasis. No gallbladder wall thickening or pericholecystic fluid. No bile duct obstruction. Pancreas: Normal. No ductal dilation. Spleen: Normal. No splenomegaly. Adrenal glands: Normal. No mass. Kidneys and ureters: Nonobstructing left renal calculus measuring 3.5 mm. Stomach and bowel: Unremarkable. No obstruction. No mucosal thickening. Appendix: Appendix is dilated and edematous with surrounding inflammation measuring up to 1.5 cm. No adjacent abscess. Intraperitoneal space: Unremarkable. No free air. No significant fluid collection. Vasculature: Unremarkable. No abdominal aortic aneurysm. Lymph nodes: Unremarkable. No enlarged lymph nodes. Urinary bladder: Unremarkable as visualized. Reproductive: Unremarkable as visualized. Bones/joints: Unremarkable. No acute fracture. Soft tissues: Unremarkable. Procedure Note Giles Mora MD - 10/02/2022 PROCEDURE INFORMATION: Exam: CT Abdomen And Pelvis With Contrast Exam date and time: 10/02/2022 12:48 AM Age: 67 years old Clinical indication: Abdominal pain; Additional info: Rlq pain,leukocytosis, fever TECHNIQUE: Imaging protocol: Computed tomography of the abdomen and pelvis withcontrast. Radiation optimization: All CT scans at this facility use at least one ofthese dose optimization techniques: automated exposure control; mA and/or kV adjustment per patient size (includes targeted exams where dose is matchedto clinical indication); or iterative reconstruction. Contrast material: [id number]; Contrast volume: 100 ml; Contrast route: INTRAVENOUS (IV); REPORTING DATA: Count of CT and Cardiac NM exams in prior 12 months: This patient hasreceived 0 known CTs and 0 known cardiac nuclear medicine studies in the 12 monthsprior to the current study. COMPARISON: [facility] [place] [facility] 12/01/2018 4:28 PM FINDINGS: Lungs: Bibasilar atelectasis. Liver: Normal. No mass. Gallbladder and bile ducts: Cholelithiasis. No gallbladder wall thickeningor pericholecystic fluid. No bile duct obstruction. Pancreas: Normal. No ductal dilation. Spleen: Normal. No splenomegaly. Adrenal glands: Normal. No mass. Kidneys and ureters: Nonobstructing left renal calculus measuring 3.5 mm. Stomach and bowel: Unremarkable. No obstruction. No mucosal thickening. Appendix: Appendix is dilated and edematous with surrounding inflammation measuring up to 1.5 cm. No adjacent abscess. Intraperitoneal space: Unremarkable. No free air. No significant fluid collection. Vasculature: Unremarkable. No abdominal aortic aneurysm. Lymph nodes: Unremarkable. No enlarged lymph nodes. Urinary bladder: Unremarkable as visualized. Reproductive: Unremarkable as visualized. Bones/joints: Unremarkable. No acute fracture. Soft tissues: Unremarkable. IMPRESSION IMPRESSION: 1. Acute appendicitis without abscess or free air. 2. Cholelithiasis. 3. Non-obstructing left renal calculus. 4. Bibasilar atelectasis. THIS DOCUMENT HAS BEEN ELECTRONICALLY SIGNED BY GILES MORA MD Era Baptiste PA-C RAD CT * SARS-COV-2 (COVID-19), NAAT (10/02/2022 12:14 AM EDT) Pathologist [facility] SARS-CoV-2 (COVID-19) Result Negative Negative 10/02/2022 1:[address] [facility] Comment: 2019 Novel Coronavirus not detected. This express test was developed and its performance characteristics determined by [email or web address]. It has not been cleared or approved [...] (RT-PCR) test, or a Centers for Disease Control- acceptable equivalent. The test is performed in a high complexity Clinical Laboratory Improvement Amendments-(CLIA) certified laboratory. The test is acceptable for SARS-CoV-2 diagnosis, surveillance, and travel within the [place] and to most countries. Please check with local testing authorities about requirements before travel. The validation of bronchial specimens, tracheal aspirates, and sputum for this assay was developed and performance characteristics determined by [email or web address]. The validation of alternate specimen types has not been cleared or approved by the U.S. Food and Drug Administration (FDA). It has been determined that such clearance is not necessary. Upper Respiratory Mid-turbinate nasal swab / Unknown Non-blood Collection / Unknown 10/02/2022 12:14 AM EDT 10/02/2022 12:17 AM EDT Era Baptiste PA-C LAB MICRO - GEN ERAL ORDERABLES LABORATORY [address] [address] * MICROSCOPIC EXAM, URINE (10/01/2022 11:18 PM EDT) RBC, Urine 0-2 0 - 2 /HPF 10/02/2022 12:[address] [facility] WBC, Urine 0-2 0 - 2 /HPF 10/02/2022 12:[address] [facility] Bacteria, Urine 0-25 0 - 25 /HPF 10/02/2022 12:[address] [facility] Urine Urine specimen obtained by clean catch procedure / Unknown Non-blood Collection / Unknown 10/01/2022 11:18 PM EDT 10/01/2022 11:25 PM EDT Rito Dolandaina Dolanlas DO LAB URINE OR DERABLES Performing Organization Address City/[facility]/ZIP Co de Phone Number LABORATORY [address] [address] * (ABNORMAL) URINALYSIS, REFLEX TO MICROSCOPIC (10/01/2022 11:18 PM EDT) Color, Urine Yellow Light Yellow, Yellow, Dark Yellow 10/01/2022 11:58 PM EDT LABORATORY [facility] Clarity, Urine Clear Clear 10/01/2022 11:58 PM EDT LABORATORY GL Glucose, Urine Negative Negative mg/dL 10/01/2022 11:58 PM EDT LABORATORY GL Bilirubin, Urine Negative Negative 10/01/2022 11:58 PM EDT LABORATORY GL Ketone, Urine Negative Negative mg/dL 10/01/2022 11:58 PM EDT LABORATORY GL Specific [place], Urine 1.026 1.003 - 1.030 10/01/2022 11:58 PM EDT LABORATORY GL Blood, Urine Negative Negative 10/01/2022 11:58 PM EDT LABORATORY GL pH, Urine 6.0 5.0 - 7.5 Units 10/01/2022 11:58 PM EDT LABORATORY GL Protein, Urine 30(A) Negative mg/dL 10/01/2022 11:58 PM EDT LABORATORY GL Urobilinogen, Urine 4.0(A) 0.2, 1.0 mg/dL 10/01/2022 11:58 PM EDT LABORATORY [facility] Nitrite, Urine Negative Negative 10/01/2022 11:58 PM EDT LABORATORY [facility] Esterase, Urine Negative Negative 10/01/2022 11:58 PM EDT LABORATORY GL Urine Urine specimen obtained by clean catch procedure / Unknown Non-blood Collection / Unknown 10/01/2022 11:18 PM EDT 10/01/2022 11:25 PM EDT Rito Dolanlas DO LAB URINE OR DERABLES LABORATORY [address] [id number] * (ABNORMAL) DIFFERENTIAL, AUTOMATED (10/01/2022 9:12 PM EDT) [facility] WBC 19.48(H) 4.00 - 10.80 K/uL 10/01/2022 9:[address] [facility] Neutrophils % 79.5(H) 40.0 - 75.0 % 10/01/2022 9:[address] [facility] Lymphocytes % 9.8(L) 18.0 - 42.0 % 10/01/2022 9:[address] [facility] Monocytes % 9.9 1.0 - 11.0 % 10/01/2022 9:18 PM EDT [facility] Eosinophils % 0.1 0.0 - 6.0 % 10/01/2022 9:[address] [facility] Basophils % 0.2 0.0 - 2.0 % 10/01/2022 9:[address] [facility] Immature Granulocytes % 0.5 0.0 - 2.0 % 10/01/2022 9:[address] [facility] Absolute Neutrophils 15.50(H) 1.80 - 7.70 K/uL 10/01/2022 9:[address] [facility] Absolute Lymphocytes 1.91 1.00 - 4.80 K/ul 10/01/2022 9:[address] [facility] Absolute Monocytes 1.92(H) 0.00 - 1.10 K/uL 10/01/2022 9:[address] [facility] Absolute Eosinophils 0.02 0.00 - 0.70 K/uL 10/01/2022 9:[address] [facility] Absolute Basophils 0.04 0.00 - 0.20 K/uL 10/01/2022 9:[address] [facility] Absolute Immature Granulocytes 0.09 0.00 - 0.20 K/uL 10/01/2022 9:[address] [facility] Blood Venous blood specimen / Unknown Venipuncture / Unknown 10/01/2022 9:12 PM EDT 10/01/2022 9:15 PM EDT [place]raine [place] J Luis DO LAB BLOOD OR DERABLES [facility]ATORY [facility] [address] [place] [address] * (ABNORMAL) CBC (10/01/2022 9:12 PM EDT) WBC 19.48(H) 4.00 - 10.80 K/uL 10/01/2022 9:[address] [facility] RBC 4.19 4.50 - 5.25 M/uL 10/01/2022 9:[address] [facility] HGB 13.4(L) 14.0 - 16.8 g/dL 10/01/2022 9:[address] [facility] HCT 39.0(L) 40.0 - 48.4 % 10/01/2022 9:[address] [facility] MCV 93.1 82.0 - 99.5 fL 10/01/2022 9:[address] [facility] MCH 32.0 27.0 - 34.0 pg 10/01/2022 9:[address] [facility] MCHC 34.4 32.0 - 36.0 g/dL 10/01/2022 9:[address] [facility] RDW 12.5 11.5 - 15.5 % 10/01/2022 9:[address] [facility] PLT 176 140 - 400 K/uL 10/01/2022 9:[address] [facility] MPV 9.1 6.6 - 11.1 fL 10/01/2022 9:[address] [facility] nRBCs 0 <=0 /100 WBCs 10/01/2022 9:[address] [facility] Blood Venous blood specimen / Unknown Venipuncture / Unknown 10/01/2022 9:12 PM EDT 10/01/2022 9:15 PM EDT Rito Dietz DO LAB BLOOD OR DERABLES LAB[facility]ATORY [facility] [address] [place] [address] * LACTATE (10/01/2022 9:12 PM EDT) Pathologist [facility] Lactate 1.3 0.4 - 2.0 mmol/L 10/01/2022 9:[address] [facility] Blood Venous blood specimen / Unknown Venipuncture / Unknown 10/01/2022 9:12 PM EDT 10/01/2022 9:15 PM EDT Mistraadalberto Nettie J Luis DO LAB BLOOD OR DERABLES Performing Organization Address City/[facility]/ZIP Co de Phone Number LABORATORY [address] [address] * EXTRA LIGHT BLUE TOP (10/01/2022 9:12 PM EDT) Blood Venous blood specimen / Unknown Venipuncture / Unknown 10/01/2022 9:12 PM EDT 10/01/2022 9:15 PM EDT Mistraadalberto [place] J Luis DO LAB BLOOD OR DERABLES Performing Organization Address [facility] Co de Phone Number LABORATORY [address] [address] * LIPASE (10/01/2022 9:12 PM EDT) Pathologist [facility] Lipase 32 13 - 60 U/L 10/01/2022 9:[address] [facility] Blood Venous blood specimen / Unknown Venipuncture / Unknown 10/01/2022 9:12 PM EDT 10/01/2022 9:15 PM EDT Mistraadalberto [place] J Luis DO LAB BLOOD OR DERABLES Performing Organization Address City/[facility] de Phone Number LABORATORY [address] [address] * (ABNORMAL) COMPREHENSIVE METABOLIC PANEL (10/01/2022 9:12 PM EDT) Pathologist [facility] BUN 18 6 - 20 mg/dL 10/01/2022 9:[address] [facility] Creatinine 1.1 0.6 - 1.2 mg/dL 10/01/2022 9:35 PM EDT LAB[facility]ATORY [facility] Estimated Glomerular Filtration Rate 71 >=60 mL/min 10/01/2022 9:35 PM EDT LAB[facility]AT[facility] Comment:eGFR is calculated b ased on the CKD-EPI 2020 equation Sodium 137 135 - 146 mmol/L 10/01/2022 9:35 PM EDT LAB[facility]ATORY [facility] Potassium 3.8 3.5 - 5.1 mmol/L 10/01/2022 9:35 PM EDT LAB[facility]AT[facility] Chloride 102 98 - 107 mmol/L 10/01/2022 9:35 PM EDT LAB[facility] CO2 27 22 - 32 mmol/L 10/01/2022 9:35 PM EDT LAB[facility] Anion Gap 8 7 - 15 mmol/L 10/01/2022 9:35 PM EDT LAB[facility] Glucose 122(H) 70 - 120 mg/dL 10/01/2022 9:35 PM EDT LAB[facility] Albumin 3.8 3.8 - 5.0 g/dL 10/01/2022 9:35 PM EDT LAB[facility] AST 21 10 - 50 U/L 10/01/2022 9:35 PM EDT LAB[facility] Alkaline Phosphatase 74 35 - 130 U/L 10/01/2022 9:35 PM EDT LAB[facility] Bilirubin, Total 1.5(H) <=1.2 mg/dL 10/01/2022 9:35 PM EDT LAB[facility] Calcium 8.5 8.4 - 10.2 mg/dL 10/01/2022 9:35 PM EDT LAB[facility] Protein 6.7 6.0 - 8.3 g/dL 10/01/2022 9:35 PM EDT LAB[facility] ALT 14 10 - 50 U/L 10/01/2022 9:35 PM EDT LAB[facility]ATORY [facility] Blood Venous blood specimen / Unknown Venipuncture / Unknown 10/01/2022 9:12 PM EDT 10/01/2022 9:15 PM EDT Rito Dietz DO LAB BLOOD OR DERABLES LAB[facility]ATORY [facility] [address] [place] [address] documented in this encounter Visit Diagnoses Diagnosis Acute appendicitis, unspecified acute appendicitis type- Primary documented in this encounter Administered Medications Inactive Administered Medications - up to 3 most recent administrations Medication Order MAR Action Action Date Dose Rate Site Acetaminophen (Tylenol) tab 975 mg 975 mg, Oral, ONCE, On Sat10/01/22 at 2145, For 1 dose, Maximum of 4 grams (4000 mg) per day. Given 10/01/2022 9:02 PM EDT 975 mg Acetaminophen (Tylenol) tab 975 mg 975 mg, Oral, Q6H PRN Pain, Mild, Fever >38C(100.5F), Starting on Sat10/02/22 at 0130, Until Sat10/02/22 at 1132, Maximum 4 g acetaminophen/day. Avoid in patients with severe hepatic impairment or severe active liver disease. Begin after around the clock acetaminophen order discontinued (S+5). Given 10/02/2022 8:49 AM EDT 975 mg Acetaminophen (Tylenol) tab 975 mg 975 mg, Oral, Q6H, First dose (after last modification) on Sat10/02/22 at 1215, Until Discontinued, Maximum 4 g acetaminophen/day. Avoid in patients with severe hepatic impairment or severe active liver disease. Begin after around the clock acetaminophen order discontinued (S+5). Given 10/03/2022 6:07 AM EDT 975 mg Given 10/02/2022 11:55 PM EDT 975 mg Given 10/02/2022 5:32 PM EDT 975 mg Docusate Sodium (Colace) cap 100 mg 100 mg, Oral, BID(AM/PM), First dose on Sat10/02/22 at 0900, Until Discontinued, For oral administration ONLY, if route of administration is other than oral and alternative product must be ordered. Given 10/03/2022 8:02 AM EDT 100 mg Given 10/02/2022 8:59 PM EDT 100 mg Given 10/02/2022 7:40 AM EDT 100 mg Ioversol (Optiray 350) 74 % inj 100 mL 100 mL, Intravenous, ONCE, On Sat10/02/22 at 0130, For 1 dose, Radiology Medication Routing (Non-IR) Given 10/02/2022 1:30 AM EDT 100 mL isolyte-S pH 7.4 infusion Intravenous, at 150 mL/hr, Plasma-LYTE 148, isolyte-S, and isolyte-S pH 7.4 are considered equivalent - including for MAR barcode scanning., CONTINUOUS, Starting on Sat10/02/22 at 0215, Until Sat10/02/22 at 1132 Restarted 10/02/2022 11:35 AM EDT Continue from Pre-Op 10/02/2022 10:16 AM EDT 15 0 mL/hr Rate Verify 10/02/2022 7:39 AM EDT 150 mL/hr isolyte-S pH 7.4 infusion Intravenous, at 100 mL/hr, Plasma-LYTE 148, isolyte-S, and isolyte-S pH 7.4 are considered equivalent - including for MAR barcode scanning., CONTINUOUS, Starting on Sat10/02/22 at 1215, Until Sat10/03/22 at 0955 New Bag 10/03/2022 8:05 AM EDT 100 mL/hr New Bag 10/02/2022 9:53 PM EDT 100 mL/hr New Bag 10/02/2022 12:21 PM EDT 100 mL/hr Morphine Sulfate (PF) inj 4 mg 4 mg, Intravenous, ONCE, On Sat10/02/22 at 0000, For 1 dose Given 10/02/2022 12:59 AM EDT 4 mg NSS 0.9% 1,000 mL bolus infusion IV Piggyback, at 1,000 mL/hr Administer over 60 Minutes, Administer entire volume within 60 minutes or less., ONCE, 1 dose, On Sat10/02/22 at 0000 New Bag 10/02/2022 12:58 AM EDT 1,000 mL 1000 mL/hr ondansetron (Zofran) inj 4 mg 4 mg, IV Push, ONCE, On Sat10/02/22 at 0000, For 1 dose Given 10/02/2022 12:59 AM EDT 4 mg ondansetron (Zofran) inj 4 mg 4 mg, IV Push, Q6H PRN Other, May use for nausea or vomiting if patient unable to take oral ondansetron, Starting on Sat10/02/22 at 0130, Until Sat10/03/22 at 1605 Given 10/02/2022 12:36 PM EDT 4 mg ondansetron ODT (Zofran) tab 4 mg 4 mg, On Tongue, Q6H PRN Nausea, Vomiting, Starting on Sat10/02/22 at 0130, Until Sat10/03/22 at 1605 oxyCODONE (Oxy IR) tab 5 mg 5 mg, Oral, Q4H PRN Pain, Moderate, Starting on Sat10/02/22 at 0131, Until Sat10/03/22 at 1605, Hold for somnolence or respiratory rate less than 10 Given 10/02/2022 4:35 PM EDT 5 mg piperacillin-tazobactam (ZOSYN) 4.5 g in D5W 100 mL (FOUR hour infusion) IV Piggyback, 4.5 g, Q8HNOW, 15 doses, First dose on Sat10/02/22 at 0800, Last dose on Sat10/07/22 at 0000, Administer over 4 Hours, at 25 mL/hr New Bag 10/02/2022 8:04 AM EDT 4.5 g 25 mL/hr piperacillin-tazobactam (ZOSYN) 4.5 g in D5W 100 mL (FOUR hour infusion) IV Piggyback, 4.5 g, Q8HNOW, 3 doses, First dose (after last modification) on Sat10/02/22 at 1600, Last dose on Sat10/03/22 at 0800, Administer over 4 Hours, at 25 mL/hr New Bag 10/03/2022 8:11 AM EDT 4.5 g 25 mL/hr New Bag 10/02/2022 11:59 PM EDT 4.5 g 25 mL/hr Rate Verify 10/02/2022 6:49 PM EDT 1.125 g/hr 25 mL/hr piperacillin-tazobactam in D5W (Zosyn) (HALF hour infusion) ivpb 4.5 g IV Piggyback, 4.5 g, ONCE, 1 dose, On Sat10/02/22 at 0145, Administer over 30 Minutes New Bag 10/02/2022 2:01 AM EDT 4.5 g 200 mL/hr Triamcinolone Acetonide (Aristocort) 0.1 % cream Topical, BID(AM/PM), First dose on Sat10/02/22 at 2100, Until Discontinued, To affected area. Given 10/03/2022 8:03 AM EDT Given 10/02/2022 9:00 PM EDT documented in this encounter Active and Recently Administered Medications Times are shown in EDT. Scheduled Medication Order 10/01/2022 10/02/2022 10/03/2022 Acetaminophen (Tylenol) tab 975 mg (COMPLETED) 975 mg, Oral, ONCE, On Sat10/01/22 at 2145, For 1 dose, Maximum of 4 grams (4000 mg) per day. 2101 (Given - Provider: Celina Ly RN) Acetaminophen (Tylenol) tab 975 mg 975 mg, Oral, Q6H, First dose (after last modification) on Sat10/02/22 at 1215, Until Discontinued, Maximum 4 g acetaminophen/day. Avoid in patients with severe hepatic impairment or severe active liver disease. Begin after around the clock acetaminophen order discontinued (S+5). 1308 (Given - Provider: Tawnya Kulkarni RN)1732 (Given - Provider: Tawnya Kulkarni RN)2355 (Given - Provider: Cale Newsome, CARIE) 0607 (Given - Provider: Cale Newsome, CARIE)1200 (Due) Docusate Sodium (Colace) cap 100 mg 100 mg, Oral, BID(AM/PM), First dose on Sat10/02/22 at 0900, Until Discontinued, For oral administration ONLY, if route of administration is other than oral and alternative product must be ordered. 0740 (Given - Provider: Tawnya Kulkarni RN)2059 (Given - Provider: Cale Newsome, CARIE) 0802 (Given - Provider: Donya Evans RN) Ioversol (Optiray 350) 74 % inj 100 mL (COMPLETED) 100 mL, Intravenous, ONCE, On Sat10/02/22 at 0130, For 1 dose, Radiology Medication Routing (Non-IR) 0130 (Given - Provider: Tomas Bustamante, RT (R)) Morphine Sulfate (PF) inj 4 mg (COMPLETED) 4 mg, Intravenous, ONCE, On Sat10/02/22 at 0000, For 1 dose 0059 (Given - Provider: Jose Albarran RN) NSS 0.9% 1,000 mL bolus infusion (COMPLETED) IV Piggyback, at 1,000 mL/hr Administer over 60 Minutes, Administer entire volume within 60 minutes or less., ONCE, 1 dose, On Sat10/02/22 at 0000 0058 (New Bag - Provider: Jose Albarran RN)0149 (Stopped - Provider: Jose Albarran RN) ondansetron (Zofran) inj 4 mg (COMPLETED) 4 mg, IV Push, ONCE, On Sat10/02/22 at 0000, For 1 dose 0059 (Given - Provider: Jose Albarran RN) piperacillin-tazobactam (ZOSYN) 4.5 g in D5W 100 mL (FOUR hour infusion) (CANCELED) IV Piggyback, 4.5 g, Q8HNOW, 15 doses, First dose on Sat10/02/22 at 0800, Last dose on Sat10/07/22 at 0000, Administer over 4 Hours, at 25 mL/hr 0804 (New Bag - Provider: Tawnya Kulkarni RN) piperacillin-tazobactam (ZOSYN) 4.5 g in D5W 100 mL (FOUR hour infusion) IV Piggyback, 4.5 g, Q8HNOW, 3 doses, First dose (after last modification) on Sat10/02/22 at 1600, Last dose on Sat10/03/22 at 0800, Administer over 4 Hours, at 25 mL/hr 1630 (New Bag - Provider: Tawnya Kulkarni RN)1849 (Rate Verify - Provider: Tawnya Kulkarni RN)2030 (Stopped - Provider: Donya Evans RN)2359 (New Bag - Provider: Cale Newsome RN) 0359 (Stopped - Provider: Donya Evans RN)0811 (New Bag - Provider: Donya Evans, CARIE) piperacillin-tazobactam in D5W (Zosyn) (HALF hour infusion) ivpb 4.5 g (COMPLETED) IV Piggyback, 4.5 g, ONCE, 1 dose, On Sat10/02/22 at 0145, Administer over 30 Minutes 0201 (New Bag - Provider: Jose Albarran RN) Triamcinolone Acetonide (Aristocort) 0.1 % cream Topical, BID(AM/PM), First dose on Sat10/02/22 at 2100, Until Discontinued, To affected area. 2100 (Given - Provider: Cale Newsome RN) 0803 (Given - Provider: Donya Evans, CARIE) Continuous Medication Order 10/01/2022 10/02/2022 10/03/2022 isolyte-S pH 7.4 infusion (CANCELED) Intravenous, at 150 mL/hr, Plasma-LYTE 148, isolyte-S, and isolyte-S pH 7.4 are considered equivalent - including for MAR barcode scanning., CONTINUOUS, Starting on Sat10/02/22 at 0215, Until Sat10/02/22 at 1132 0359 (New Bag - Provider: Cale Newsome RN)0604 (Rate Verify - Provider: Tawnya Kulkarni, RN)0739 (Rate Verify - Provider: Tawnya Kulkarni, RN)1016 (Continue from Pre-Op - Provider: Lydia Lazar CRNA)1134 (Paused - Provider: Lydia Lazar CRNA - Comment: Switch to gravity)1135 (Restarted - Provider: Lydia Lazar CRNA) isolyte-S pH 7.4 infusion (CANCELED) Intravenous, at 100 mL/hr, Plasma-LYTE 148, isolyte-S, and isolyte-S pH 7.4 are considered equivalent - including for MAR barcode scanning., CONTINUOUS, Starting on Sat10/02/22 at 1215, Until Sat10/03/22 at 0955 1221 (New Bag - Provider: Adam Lai RN)2153 (New Bag - Provider: Sweta Guardado RN) 0750 (Stopped - Provider: Donya Evans, CARIE)0805 (New Bag - Provider: Donya Evans, CARIE) PRN Medication Order 10/01/2022 10/02/2022 10/03/2022 Acetaminophen (Tylenol) tab 975 mg (CANCELED) 975 mg, Oral, Q6H PRN Pain, Mild, Fever >38C(100.5F), Starting on Sat10/02/22 at 0130, Until Sat10/02/22 at 1132, Maximum 4 g acetaminophen/day. Avoid in patients with severe hepatic impairment or severe active liver disease. Begin after around the clock acetaminophen order discontinued (S+5). 0849 (Given - Provider: Rola Kulkarni, RN) bupivacaine (Sensorcaine) 0.25 % inj (CANCELED) ONCE PRN INTRA PROCEDURE, Starting on Sat10/02/22 at 1115, Until Sat10/02/22 at 1128, Intra-Op 1115 (Given - Provider: Jimi Lara, DO - Comment: port sites) ondansetron (Zofran) inj 4 mg(Linked Group 1) 4 mg, IV Push, Q6H PRN Other, May use for nausea or vomiting if patient unable to take oral ondansetron, Starting on Sat10/02/22 at 0130, Until Sat10/03/22 at 1605 1236 (Given - Provider: Boni Rene RN) ondansetron ODT (Zofran) tab 4 mg(Linked Group 1) 4 mg, On Tongue, Q6H PRN Nausea, Vomiting, Starting on Sat10/02/22 at 0130, Until Sat10/03/22 at 1605 1236 (See Alternative - Provider: Soheila Rene RN) oxyCODONE (Oxy IR) tab 10 mg 10 mg, Oral, Q4H PRN Pain, Severe, Starting on Sat10/02/22 at 0131, Until Sat10/03/22 at 1605, Hold for somnolence or respiratory rate less than 10 oxyCODONE (Oxy IR) tab 5 mg 5 mg, Oral, Q4H PRN Pain, Moderate, Starting on Sat10/02/22 at 0131, Until Sat10/03/22 at 1605, Hold for somnolence or respiratory rate less than 10 1635 (Given - Provider: Rola Kulkarni, CARIE) Linked Groups Order Group 1: ondansetron ODT (Zofran) tab 4 mgJump to med 4 mg, On Tongue, Q6H PRN Nausea, Vomiting
Starting on Sat10/02/22 at 0130, Until Sat10/03/22 at 1605 Or ondansetron (Zofran) inj 4 mgJump to med 4 mg, IV Push, Q6H PRN Other, May use for nausea or vomiting if patient unable to take oral ondansetron
Starting on Sat10/02/22 at 0130, Until Sat10/03/22 at 1605 documented in this encounter Advance Directives Latest [...] the patient have Health Care Power of Detective Youth [employer]? No Care Teams Boarding House Manager Relationship Specialty Start Date End Date Shane Zhu, [address] [place] [address] PCP - General Family Medicine 07/31/22 documented as of this encounter"
--- OUTSIDE RECORDS SUMMARY | 2023-03-15 00:40 | External Medical Summary ---
Author Name Unknown Address Unknown Organization K1F:LABORATORY [facility] - [facility] [place] [address] Laboratory Report Ordering Provider Test Date Status MARIANNEAMANDAЕЛЕНА YOLI 10/01/2022 23:18:24 Fin al Observation Date Value Abnormality Reference (Units ) Status RBC, Urine 10/01/2022 23:18:24 0-2 0-2 (/HPF) Final WBC, Urine 10/01/2022 23:18:24 0-2 0-2 (/HPF) Final Bacteria [#/area] in Urine sediment by Microscopy high power field 10/01/2022 23:18:24 0-25 0-25 (/HPF) Final Performing Location LABORATORY [facility] - [address] [place] [address]
--- OUTSIDE RECORDS SUMMARY | 2023-03-15 00:41 | External Medical Summary ---
Author Name Unknown Address Unknown Organization K1F:LABORATORY [facility] - [address] [place] [address] Laboratory Report Ordering Provider Test Date Status ЕЛЕНА PALMA 10/01/2022 21:12:00 Fin al Observation Date Value Abnormality Reference (Units ) Status Lipase 10/01/2022 21:12:00 32 13-60 (U/L ) Final Performing Location LABORATORY [facility] - [address] [place] [address]
--- OUTSIDE RECORDS SUMMARY | 2023-03-15 00:41 | External Medical Summary ---
Author Name Unknown Address Unknown Organization K1F:[facility] [address] [facility] [place] [address] Laboratory Report Ordering Provider Test Date Status ЕЛЕНА PALAM 10/01/2022 21:12:00 Fin al Observation Date Value Abnormality Reference (Units ) Status SYNC LEUKOCYTES IN BLOOD BY AUTOMATED COUNT 10/01/2022 21:12:00 19.48 Above high normal 4.00-10.80 (K/uL) Final Segs 10/01/2022 21:12:00 79.5 Above high normal 40.0-75.0 (%) Final Lymphs % 10/01/2022 21:12:00 9.8 Below low normal 18.0-42.0 (%) Final Monos 10/01/2022 21:12:00 9.9 1.0-11.0 (%) Final Eosinophils 10/01/2022 21:12:00 0.1 0.0-6.0 (%) Final Basos 10/01/2022 21:12:00 0.2 0.0-2.0 (%) Final Immature Granulocyte, Percent 10/01/2022 21:12:00 0.5 0.0-2.0 (%) Final Absolute Segs 10/01/2022 21:12:00 15.50 Above high normal 1.80-7.70 (K/uL) Final Lymphs, absolute 10/01/2022 21:12:00 1.91 1.00-4.80 (K/ul) Final Monos, Abs 10/01/2022 21:12:00 1.92 Above high normal 0.00-1.10 (K/uL) Final Eos, Abs 10/01/2022 21:12:00 0.02 0.00-0.70 (K/uL) Final Basos, Abs 10/01/2022 21:12:00 0.04 0.00-0.20 (K/uL) Final Immature Granulocytes, Number 10/01/2022 21:12:00 0.09 0.00-0.20 (K/uL) Final Performing Location LAB[address]ATORY [address] [place] [address]
--- OUTSIDE RECORDS SUMMARY | 2023-03-15 00:41 | External Medical Summary | Summary of Care ---
Author Name Unknown Organization [facility] Address [address] [place] [address] Phone [phone] Care Team Providers Care Bar Pointer Name Role Phone Shane Zhu DO Primary Care Provider [phone] Reason for Visit * Reason Onset Date Comments Appointment 09/28/2022 Encounter Details Date Type Department Care Team Description 09/28/2022 Telephone Vascular Surg [facility] [address] [place], [place] [id number] Edwin Jennings CRNP [address] [place] [address] Appointment Allergies Active Allergy Reactions Severity Noted Date Comments Lmrrcuduy-Ideeigdx-Rw 01/24/2009 Dymatapp- burning palms documented as of this encounter (statuses as of 09/28/2022) Medications Medication Sig Dispensed Refills Start Date End Date Status MULTIVITAMINS PO CAPS one cap daily 0 0 01/24/2009 Active METAMUCIL 0.52 GM PO CAPS 2 in AM 60 Cap 0 12/26/2009 Active VIAGRA 50 MG PO TABSIndications:Impot ence of organic origin One pill by mouth 1-4 hours before intercourse, no more than 1 dose in 24 hours. 10 Tab 5 11/13/2010 Active TRIAMCINOLONE ACETONIDE 0.1 % EX CREAIndications:[place] titis Apply to affected area twice a day 80 g 5 02/05/2013 Active furosemide (LASIX) 20 MG Tablet Take 20 mg by mouth daily. 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 Could you see if she could come earlier in day - we have 2 openings? TREY Silva 09/28/2022 7:25 AM documented in this encounter Plan of Treatment Upcoming Encounters Date Type Specialty Care Team Description 10/11/2022 Office Visit Vascular Surgery Fredy Verma MD [address] [place] [address] Scheduled Procedures Name Priority Associated Diagnoses Date/Ti [...] 04/10/2024 04/10/2019, 04/10/2019, 02/15/2014, Additional history exists GARDASIL-HPV IMMUNIZATION SERIES Aged [...] Not on filedocumented as of this encounter Care Teams Bar Pointer Relationship Specialty Start Date End Date Shane Zhu, DO [facility] [place] [address] PCP - General Family Medicine 07/31/22 documented as of this encounter
--- OUTSIDE RECORDS SUMMARY | 2023-03-15 00:41 | External Medical Summary | Summary of Care ---
Author Name Unknown Organization [facility] Address [address] [place] [address] Phone [phone] Care Team Providers Care Grounds Manager Name Role Phone Shane Zhu DO Primary Care Provider [phone] Reason for Visit * Reason Onset Date Comments Appointment 09/28/2022 Encounter Details Date Type Department Care Team Description 09/28/2022 Telephone Vascular Surg [facility] [address] [place], [place] [id number] Edwin Jennings CRNP [address] [place] [address] Appointment Allergies Active Allergy Reactions Severity Noted Date Comments Nfthibgqm-Yuajasko-Oq 01/24/2009 Dymatapp- burning palms documented as of [...] 11/13/2010 Active TRIAMCINOLONE ACETONIDE 0.1 % EX CREAIndications:[place] titis Apply to affected area twice a [...] Miscellaneous Notes * Telephone Encounter - BRENDA Rivera - 09/28/2022 9:07 AM EDT Pt moved, lvm w/ new time. * Telephone Encounter - TREY Marinelli - 09/28/2022 7:24 AM EDT Domi, Patient scheduled on 10/11/22 at 2:50 (double-booked) at [place]. Could you see if she could come earlier in day - we have 2 openings? TREY Silva 09/28/2022 7:25 AM documented in this encounter Plan of Treatment Upcoming Encounters Date Type Specialty Care Team Description 10/11/2022 Office Visit Vascular Surgery Fredy Verma MD [address] [place] [address] Scheduled Procedures Name Priority Associated Diagnoses Date/Ti [...] filedocumented as of this encounter Care Teams Grounds Manager Relationship Specialty Start Date End Date Shane Zhu, DO [address] [place] [address] PCP - General Family Medicine 07/31/22 documented as of this encounter
--- OUTSIDE RECORDS SUMMARY | 2023-03-15 00:41 | External Medical Summary ---
Author Name Unknown Address Unknown Organization [id number]:[facility] - [address] [place] [id number] Laboratory Report Ordering Provider Test Date Status ЕЛЕНА PALMA 10/01/2022 21:12:00 Fin al Observation Date Value Abnormality Reference (Units ) Status WBC, Total 10/01/2022 21:12:00 19.48 Above high normal 4.00-10.80 (K/uL) Final RBC 10/01/2022 21:12:00 4.19 4.50-5.25 (M/uL) Final Hemoglobin 10/01/2022 21:12:00 13.4 Below low normal 14.0-16.8 (g/dL) Final HCT 10/01/2022 21:12:00 39.0 Below low normal 40.0-48.4 (%) Final MCV 10/01/2022 21:12:00 93.1 82.0-99.5 (fL) Final MCH 10/01/2022 21:12:00 32.0 27.0-34.0 (pg) Final MCHC 10/01/2022 21:12:00 34.4 32.0-36.0 (g/dL) Final RDW 10/01/2022 21:12:00 12.5 11.5-15.5 (%) Final Platelets 10/01/2022 21:12:00 176 140-400 (K/uL) Final MPV 10/01/2022 21:12:00 9.1 6.6-11.1 (fL) Final Nucleated erythrocytes/100 leukocytes [Ratio] in Blood by Automated count 10/01/2022 21:12:00 0 <=0 (/100 WBCs) Final Performing Location [facility] - [address] [place] [address]
[2023-03-15] MEDS: LACTATED RINGER'S 1,000 ML IV SCH ×2 (01:15→10:53)
[2023-03-15] MEDS: ACETAMINOPHEN 325 MG TAB PO SCH ×2 (01:15→06:21)
--- NOTE | 2023-03-15 07:55 | Urology Progress Note ---
<Statement entered by David Rojas MD - 03/15/23 09:55> I have discussed Mr. Page's case with TREY Lima and agree with the above documentation. He is doing well s/p radical prostatectomy. He is appropriate for discharge today. We will plan to follow-up in 1 week with catheter removal and pathology review. -David Rojas MD. Date of Service March 15, 2023 Assessment & Plan (1) Prostate cancer: Plan - POD #1 s/p Robotic Assisted Laparoscopic Radical Retropubic Prostatectomy, Pelvic Lymph Node Dissection with Dr. Rojas. - Feeling well, progressing as expected. - Remains afebrile and hemodynamically stable. - Labs reviewed -WBC 14.17, hemoglobin 13.5, creatinine 0.84. - Bansal draining appropriatelyurine is clear yellow. - Minimal pain. - Tolerating diet. - Ambulating without issue. - Pt is stable for discharge home today with Bansal catheter in place. - Expected clinical course reviewed, all questions answered. - Will arrange appropriate postoperative follow-up. Admission and Anticipated Discharge Date Admission Date: March 14, 2023 Subjective Patient examined at bedside this AM. Awake, resting in bed on arrival. No acute issues overnight. Overall feeling well. Denies fevers, chills, nausea, vomiting. Reports minimal pain. Tolerating diet. Ambulated yesterday without issue. Incisions appropriate. Bansal catheter intact, draining clear yellow urine. + Flatus. Review of Systems Constitutional: as per Subjective / HPI Gastrointestinal: as per Subjective / HPI Genitourinary: + as per Subjective / HPI Physical Exam Constitutional: well developed and well nourished; no acute distress Respiratory: normal respiratory effort; no respiratory distress and no labored breathing Gastrointestinal (Abdomen): Percussion/Palpation: abdomen soft; abdomen nontender Incisions appropriate, Dermabond intact. Skin: No visible rashes or lesions to exposed skin areas Neurologic: moves all extremities and awake Psychiatric: A+Ox3, euthymic affect Genitourinary: Bansal intact, urine is clear yellow. Results & Data Vital Signs (Past 12 Hours) Vital Signs Temp Pulse Resp BP Pulse Ox O2 Del Method 03/15/23 07:00 36.7 C 66 16 139/72 94 Room Air 03/15/23 04:04 36.5 C 69 18 142/73 H 94 Room Air 03/14/23 23:21 36.7 C 71 18 139/68 92 Room Air PG Care Time/CCT Total # of Minutes Spent Total Time Spent with Patient: Total time spent is greater than 50% in coordination of care (as documented) at patient's floor/unit and/or counseling patient: Coding Level of Care Code None Diagnoses Prostate cancer C61
[2023-03-15 08:36] LABS: Basophils # (auto) 0.03 K/uL (0.00-0.20); Basophils % (auto) 0.2 %; Hematocrit (blood only) 39.1 % (42.0-52.0); Hemoglobin 13.5 g/dl (14.0-18.0); Immature Granulocytes # (auto) 0.08 K/uL (0.01-0.20); Immature Granulocytes % (auto) 0.6 %; Lymphocytes # (auto) 1.06 K/uL (1.20-3.40); Lymphocytes % (auto) 7.5 %; Mean Corpuscular Hemoglobin 31.2 pg (25.0-34.0); Mean Corpuscular Hgb Conc 34.5 g/dL (32.0-36.0); Mean Corpuscular Volume 90.3 fL (80.0-100.0); Mean Platelet Volume 9.8 fL (9.4-12.4); Monocytes # (auto) 1.01 K/uL (0.11-0.59); Monocytes % (auto) 7.1 %; Neutrophils # (auto) 11.99 K/uL (1.40-6.50); Neutrophils % (auto) 84.6 %; Platelet Count 212 K/uL (130-400); RDW Coefficient of Variation 12.1 % (11.5-14.5); RDW Standard Deviation 39.8 fL (36.4-46.3); Red Blood Count 4.33 M/uL (4.70-6.10); White Blood Count 14.17 K/ul (4.8-10.8)
[2023-03-15] MEDS: DOCUSATE SODIUM 100 MG CAP PO SCH (08:38)
[2023-03-15] MEDS: HEPARIN SOD 5,000 UNIT/0.5 ML VIAL SQ SCH (08:39)
[2023-03-15] MEDS ORDERED: FUROSEMIDE 20 MG TAB PO SCH (09:00)
[2023-03-15 09:11] LABS: BUN Creatinine Ratio 22.6 (10-20); Calcium 8.6 mg/dl (8.6-10.3); Creatinine Clr Calc Pharmacy 109.7 ml/min; Est GFR (African American) 105.7 ml/min; Est GFR (Non-African American) 91.2 ml/min; Potassium 4.1 mmol/L (3.5-5.1)
--- NOTE | 2023-03-15 09:58 | Discharge Summary ---
Date of Service March 15, 2023 Admission HPI Per Admitting Provider This is a 67-year-old male followed by urology for prostate cancer. He underwent robot-assisted radical prostatectomy on 03/14/2023. He was admitted postoperatively in good condition. Admission Exam Per Admitting Provider Constitutional: well developed and well nourished; no acute distress Eyes: + anicteric sclerae; pupils not irregula r Respiratory: normal respiratory effort; no respiratory distress, does not use accessory muscles and no cough Cardiovascular: well perfused Gastrointestinal (Abdomen): Inspection/Auscultation: abdomen normal to inspection; abdomen not distended Musculoskeletal: Extremities: extremities normal to inspection Skin: normal turgor; no rashes and no lesions Neurologic: moves all extremities and awake Psychiatric: Orientation: alert and oriented x 3 Principal Diagnosis Prostate cancer Discharge Exam Well-appearing, NAD Genitourinary Mora catheter in good position, draining clear yellow urine. Discharge Data Allergies Allergy/AdvReac Type Severity Reaction Status Date / Time No Known Drug Allergies Allergy Verified 03/14/23 06:04 Procedures Performed Operation Date: 03/14/23 07:30 Actual Procedures p Robotic Assisted Laparoscopic Radical Retropubic Prostatectomy, Pelvic Lymph Node Dissection(Not Applicable) - David Rojas MD Hospital Course (1) Prostate cancer: He underwent robot-assisted radical prostatectomy on 03/14/2023. He was admitted postoperatively for monitoring. On 03/15/2023, he was feeling well, tolerating a diet, ambulating and his pain was well controlled. He was discharged home in good condition. Total Time Total Time Spent Total Time Spent (In Minutes): 15 Discharge Plan Discharge Items Patient Disposition: Home - Self-Care Reason For Visit: Prostate cancer Discharge Diagnosis: Prostate cancer Activity: Per Instructions section Non-emergency contact: Urologist Call non-emergency contact if: you have any medication questions, your pain is not controlled, you have a fever, your temperature is above 101, your wound has increased redness, your wound has increased drainage and your wound pain has increased Follow-up/Referrals: Shane Zhu DO [Primary Care Provider] - Diet: Regular Addtl Attending Provider Instructions: The surgery you had was: Robot-assisted radical prostatectomy with bilateral pelvic lymph node dissection. Please take all medications as prescribed and keep all follow-ups as scheduled. Please call our office at [phone] with any questions, concerns or need to reschedule appointments for any reason. We are happy to assist you Medications: Please take all medications as prescribed. For pain control, you can take tylenol every 6 hours. You can also take ibuprofen every 6 hours. If you have been prescribed a narcotic pain medication, please take this acco rding to the instructions on the label. You have been prescribed a single dose of antibiotics (Bactrim) to be taken 1 hour prior to your appointment for mora catheter removal. Activity: We recommend having someone with you for the first few days after surgery to help care for you. For the first 2 weeks after surgery, we would like you to get up and walk around your house. However, we recommend limit physical activity that would increase your heart rate. This will allow your body to rest and heal. Take naps if you feel tired. Don't lift anything heavier than 10 pounds, mow the law or ride a bicycle until your follow-up appointment. Please avoid long car rides. Home Care: Unless directed otherwise, drink 6 to 8 glasses of water a day (enough to keep your urine light colored). This will also help keep a healthy flow of urine. We recommend using a stool softener such as colace or miralax for the first two weeks to avoid constipation. Mora Catheter or Suprapubic Catheter care: Keep the catheter well secured with either a leg back or leg strap with large bag. Empty your bag when it's about half full. You may notice some blood in the bag. This is normal after surgery and while the catheter is in place. Use mild soap (such as Dove or Dial) and water to wash the catheter and the head of your penis daily, or more frequently if needed. Return to your normal diet, we encourage good protein intake to promote healing. You may shower as normal. Please avoid tub baths or soaking until catheter removed and incisions well healed. Wearing sweat pants while you have the catheter is recommended, they will be more comfortable. Follow-up We will have you come to the office in approximately 7 days for catheter removal and pathology review. - Please remember to take your dose on antibiotics 1 hour prior to this appointment. Call [facility] at [phone] right away if you have any of the following: Chest pain or trouble breathing (call 911 or go to the hospital) Fever of 101F or higher, uncontrolled vomiting Heavy bleeding, clots, or bright red blood from the catheter Catheter that falls out or stops draining Foul-smelling discharge from your catheter Redness, swelling, warmth, or increased pain at your incision site Drainage, pus, or bleeding from your incision Pending Studies at Discharge: No Stand-Alone Forms: My [facility] [employer], Smoking Cessation Medications and DC Order Prescriptions: New sulfamethoxazole-trimethoprim [Bactrim DS] 800-160 mg tablet 1 tab PO ONCE 1 Days Qty: 1 0RF Rx Instructions: Take 1 hour prior to appointment for catheter removal Continued ferrous sulfate 325 mg (65 mg iron) tablet 325 mg PO Q OTHER DAY fluconazole [Diflucan] 100 mg tablet 100 mg PO DAILY Qty: 5 0RF Patient Comments: not on at present 03/04/23 nystatin-triamcinolone 100,000-0.1 unit/g-% cream 1 applic topical BID Qty: 30 1RF furosemide 20 mg tablet 20 mg PO QAM Patient Comments: only takes as needed multivitamin tablet 1 tab PO DAILY Qty: 90 3RF Discharge Orders: Discharge Order (Routine); Ordered 03/15/23 Ordered By: David Rojas Admission Data Admit Date/Time: 03/14/23 12:35 Attending Provider: David Rojas Admit Provider: David Rojas Primary Care Provider: Shane Zhu Coding Level of Care Code 07595 IN/OBS DISCH 30 MIN/LESS Diagnoses Prostate cancer C61
== END 2023-03-15 11:27 | disposition home or self-care (01) ==
LOC: ASU 05:45 → INTOOBSV 12:35 → 3N 12:35